=== PATIENT | male | born 1940 | race Caucasian/White ===

== ENCOUNTER 2024-02-23 08:09 | Inpatient (IN) | payer OTHER, SELFPAY ==
[2024-02-21 21:43] VITALS: BP 176/68
[2024-02-21 22:00] VITALS: BP 149/77
[2024-02-21 22:17] LABS: % Basophils 0.7 % (0-2); % Eosinophils 3.9 % (0-6); % Immature Granulocytes 0.3 % (0-0.5); % Lymphocytes 28.9 % (20.5-51.1); % Monocytes 15.1 % (1.7-9.3); % Neutrophils 51.1 % (42.2-75.2); Absolute Basophils 0.1 10^3/uL (0-0.2); Absolute Eosinophils 0.4 10^3/uL (0-0.7); Absolute Lymphocytes 2.9 10^3/uL (1.2-3.4); Absolute Monocytes 1.5 10^3/uL (0.1-0.6); Absolute Neutrophils 5.1 10^3/uL (1.4-6.5); Hematocrit 42.4 % (39.0-52.0); Hemoglobin 14.4 g/dL (13.0-18.0); Mean Corpuscular Hgb 30.5 pg (27.0-31.0); Mean Corpuscular Volume 89.8 fL (80.0-94.0); Mean Platelet Volume 9.5 fL (7.4-10.4); Nucleated Red Blood Cells % 0 % (-); Platelet Count 246 10^3/uL (130-400); Red Blood Cell Count 4.72 10^6/uL (4.70-6.10); Red Cell Dist. Width 14.6 % (11.5-14.5); White Blood Cell Count 10.1 10^3/uL (4.8-10.8)
[2024-02-21 22:22] VITALS: BMI 23.7
[2024-02-21 22:31] LABS: ALT (SGPT) 22 U/L (0-50); AST (SGOT) 24 U/L (17-59); Albumin 4.3 g/dl (3.5-5.0); Alkaline Phosphatase 93 U/L (38-126); Blood Urea Nitrogen 20 mg/dl (9-20); Calcium 9.9 mg/dl (8.4-10.2); Carbon Dioxide 25 mmol/L (22-30); Chloride 103 mmol/L (98-107); Estimated Creatinine Clearance 37 ml/min; Glucose 87 mg/dl (70-99); Potassium 4.6 mmol/L (3.5-5.1); Sodium 138 mmol/L (135-145); Total Bilirubin 0.7 mg/dl (0.2-1.3); Total Protein 6.8 g/dl (6.3-8.2); eGFR 42.22
[2024-02-21 22:33] LABS: Urine Albumin Trace (Neg - Trace); Urine Bilirubin 1+ (Negative); Urine Character Clear (Clear); Urine Color Yellow; Urine Glucose Negative (Negative); Urine Ketone Negative (Negative); Urine Leukocyte Negative (Negative); Urine Nitrite Negative (Negative); Urine Occult Blood Negative (Negative); Urine Urobilinogen Negative (Neg - 1+)
[2024-02-22] VITALS (8 sets, daily range): BP systolic 108–209; BP diastolic 57–96; BMI 23.1
--- NOTE | 2024-02-22 00:02 | ED.GENMED ---
History of Present Illness
General
Chief Complaint: Fall
Source: spouse and family (Son)
Exam Limitations: dementia
Time Seen by Provider: 02/21/24 23:44
History of Present Illness
History of Present Illness:
This is a 84 year old male that comes in with c/o fall. states that she was upstairs taking her shower. States that she heard a dish fall and went down stairs. States that what she thinks happens was that he went to the BR and when he came out
he started to fall and hit the plate on the counter and he was found on the floor. States that she was unable to get him up and he speak was garbled. States that she called her son and they got him up in a chair. States that he wanted to then go out
the back door. States that earlier in the evening when she saw him walking he walked feebly. Denies any fever, chills, chest pain, SOB, abd pain, nausea, vomiting, dairrhea, headache, dizziness, urinary burning.
Past History
Past History
ED Past Medical History: CVA, GERD, HTN, Hypercholesterolemia, Hypothyroidism and Other (Dementia, Glaucoma, Sleep apnea, )
ED Past Surgical History: Cardiac (Pacemaker) and Other (History of endoscopy, Cataracts, )
Social History
Tobacco: Non-smoker
Alcohol: None
Drug: None
Personal:
Living: with family
Family History
Family History: Other
Review of Systems
Review of Systems
All Other Systems: ROS reviewed and negative except as documented in HPI and ROS
Constitutional: Reports no symptoms; Denies fever or chills
EENT: Reports no symptoms
Respiratory: Denies cough or trouble breathing
Cardiac: Denies chest pain
ABD/GI: Reports no symptoms; Denies abdominal pain, nausea, vomiting or diarrhea
: Reports no symptoms; Denies dysuria, frequency or urgency
Musculoskeletal: Reports no symptoms
Skin: Reports no symptoms
Neurological: Reports no symptoms; Denies dizzy or headache
Psychiatric: Reports no symptoms
Phy Exam
General Physical Exam
General Presentation: no apparent distress
General age: appears stated age
General Skin: warm and dry
General Habitus: elderly
General Mental: usual mental status
General Hydration: appears well hydrated
ENT Exam
ENT Exam: TM's normal, pharynx normal and neck supple
Eye Exam
Eye Exam: EOMI
Cardiovascular Exam
Cardiovascular Exam: regular rate/rhythm, no edema and normal peripheral pulses
Pulmonary Exam
Pulmonary Exam: no respiratory distress, chest non tender, no rhonchi, no wheezing, no cough and other (Few crackles noted left base)
Gastrointestinal Exam
Gastrointestinal Exam: normal bowel sounds, non tender, soft, no organomegaly, no pulsatile mass and non distended
Musculoskeletal Exam
Musculoskeletal Exam: full ROM and no edema
Skin Exam
Skin Exam: normal color, warm/dry, no rash and no petechia
Psychiatric Exam
Psychiatric Exam: other (Dementia. gets agitated very easily)
Course
Orders/Labs/Results
Orders:
Orders
02/21/24 22:02
CMP [Comprehensive Metabolic Panel] Urgent
Complete Blood Count/With Diff Urgent
02/21/24 22:16
Urinalysis Reflex To Culture Urgent
Date Specimen was Collected: 02/21/24
Time Specimen was Collected: 22:15
Comment: straight cath
02/21/24 22:34
CT Head W/o Iv Contrast Urgent
Comment:
Reason For Exam: fall, confused, on plavix
Cervical Spine wo Contrast CT [CT Cervical Spine W/o Iv Contr] Urgent
Comment:
Reason For Exam: fall, confused, on plavix
02/22/24 00:08
CR Chest Single View Urgent
Reason For Exam: Crackles
02/22/24 00:11
Haloperidol Lactate [Haldol] 1 mg IV NOW STA
02/22/24 00:13
EKG [Electrocardiogram (*1)] Urgent
Reason for Study: QTc Monitoring
02/22/24 00:14
EKG- Treatment ONCE
02/22/24 01:36
Haloperidol Lactate [Haldol] 5 mg .ROUTE .STK-MED ONE
02/22/24 01:42
Quetiapine Fumarate [Seroquel] 25 mg PO NOW STA
02/22/24 01:43
Admit/Transfer Patient As Directed
Co-Sign Provider:
Level of Care: Observation services
Assign to:: Telemetry
Physician / Group: Jan
Diagnosis: Fall, Weakness
Reason for Telemetry: Arrhythmia
Date to Stop Telemetry: 02/25/24
Time to Stop Telemetry: 11:00
02/22/24 01:44
PRN Pain Medication Management As Directed
May give lesser potent ordered pain med per pt: Yes
preference::
Protocol:: Medication orders for pain may be administered in a
manner that supports deferring to patient preference
when the pt is:
- Requesting an ordered lesser potent pain medication.
Least to most potent pain medications are defined
as: acetaminophen < NSAID < tramadol < opioids
(morphine, oxycodone, hydromorphone).
- Requesting a lesser dose of the same medication IF
ORDERED.
- Requesting a less intrusive route of administration
if both routes are prescribed by the provider (PO <
IV).
02/22/24 01:45
Code Status As Directed
Resuscitation Status: Full Code
02/22/24 02:00
Flush (0.9% Sodium Chloride) [Flush (Nss)] See Dose Instructions IV PER PROTOCOL
02/22/24 02:54
Acetaminophen [Tylenol] 650 mg PO Q4HPRN PRN
Polyethylene Glycol Powder [Miralax] 17 grams PO DAILY PRN
Quetiapine Fumarate [Seroquel] 12.5 mg PO Q6HPRN PRN
02/22/24 02:54
Echo 2D MMode Doppler [Echo 2D MMode Color/Doppler] Routine
Reason for Study: CHF
Case Management Consult ONCE
Case Management Consult: Discharge Planning
TSH Reflex To Free T4 Routine
Activity As Directed
Activity Level: Ambulate
With Assistance
Bladder Scan As Directed
Follow Bladder Retention/Intermittent Cath Algorithm?: Yes
PRN if no void in __ hours: 6
Frequency: Per Retention Algorithm
If Bladder Scan Result >: 400
then:: Straight cath
EKG with chest pain [ECG as needed] As Directed
ECG as needed for:: Chest Pain
I/O [Intake/ Output] As Directed
Frequency: Per unit guidelines
Neurological Checks As Directed
Frequency: q4h
Orthostatic Vital Signs As Directed
Orthostatic VS Frequency: BID
Pneumatic Compression Sleeves As Directed
Type: Knee high
Straight Cath As Directed
Frequency: Per Retention Algorithm
Additional Instructions: straight cath as needed per acute urinary retention algorithm for 24 hrs
Additional Instructions: for bladder scan greater than 400 mL
Vital Signs As Directed
Frequency: Per unit guidelines
Weight As Directed
Frequency: Daily
Oxygen Therapy [O2 Therapy] [RESP] Routine
Titrate/Wean O2 to maintain O2 sat greater than (%): 94
Ot Eval And Treat Routine
PT Consult [Pt Eval And Treat] Routine
Activity Level: Ambulate
With Assistance
DX Deep Vein Thrombosis Video Routine
02/22/24 06:00
EKG [Electrocardiogram (*1)] IN AM
Reason for Study: Chest Pain
Regular
At Your Request: Limited, Spoilage Worker Required
Basic Metabolic Panel IN AM
Complete Blood Count/No Diff IN AM
Levothyroxine [Synthroid] 50 mcg PO DAILY @ 0600
02/22/24 08:00
Amlodipine [Norvasc] 5 mg PO DAILY
Brimonidine Tartrate/Timolol [Combigan Eye Drops] 1 drop BOTH EYES BID
Heparin 5,000 units SC Q12
Tamsulosin [Flomax] 0.4 mg PO BID
02/22/24 18:00
Pantoprazole [Protonix] 40 mg PO QPM
02/22/24 22:00
Clopidogrel Bisulfate [Plavix] 75 mg PO HS
Latanoprost [Xalatan Ophthalmic Solution] 1 drop BOTH EYES HS
Sennosides [Senokot] 17.2 mg PO HS
02/25/24 11:00
DC Protocol for Telemetry ONCE
Abnormal Lab Results
02/21/24 02/21/24
22:02 22:16
RDW 14.6 H %
(11.5-14.5)
Absolute Monos (auto) 1.5 H 10^3/uL
(0.1-0.6)
Monocytes % 15.1 H %
(1.7-9.3)
Creatinine 1.6 H mg/dL
(0.7-1.3)
Urine Bilirubin 1+ A
(Negative)
02/21/24 22:02
02/21/24 22:02
Cr slightly elevated. Urine negative for infection.
Vital Signs
Initial and Last Documented VS:
Initial Vital Signs
Pulse Resp BP Pulse Ox
70 18 176/68 97
02/21/24 21:43 02/21/24 21:43 02/21/24 21:43 02/21/24 21:43
Last Documented Vital Signs
Temp Pulse Resp BP Pulse Ox
98 F 62 20 160/81 96
02/22/24 02:47 02/22/24 02:47 02/22/24 02:47 02/22/24 02:47 02/22/24 02:47
MDM/Problems Addressed
Differential Diagnosis Includes:
Dementia, accidental fall
MDM/Problems Addressed:
This is a 84 year old male that comes in with c/o fall. states that she was unable to get him up and he had garbled speech at first. States that now he is back to his base line. States that she is unable to care for patient. States that he
keeps getting up and she is afraid that he will fall again.
Will check labs, CT head and cervical spine. Patient is on Plavix. Did get patient up to walk and patient was unsteady and needed assist of two. Will admit patient for [facility].
Chronic conditions affecting care:
Dementia
Acute Exacerbation and/or Progression of Chronic Illness:
Dementia
*Radiology
Radiology exam reviewed: preliminary read by ED provider (Chest-Increased vascular congestion. ) and radiology read reviewed (CT head-No acute intracranial abnormality noted. Moderate atrophy with sequelae of mild small vessel ischemic disease.
Cervical spine CT-No acute osseous abnormality. Multilevel degenerative changes. )
*Pulse Oximetry
Patient hypoxic: no
*EKG
Interpreted by ED Provider?: Yes
Heart Rate: 62
Rate: normal
Rhythm: av sequential
[place]: left axis deviation
*Car Pusher Interpretation
Rate: normal
Heart Rate: 92
Rhythm: av sequential
*Critical Care Note
Total Time (30-74mins, 75-104mins- exclusive of procedures): Not Applicable
ED Attending Note
-
Portions of this chart may have been created with voice recognition software.� Occasional wrong word or��sound alike� substitutions may have occurred due to the inherent limitations of voice recognition software.
Discharge Plan
Departure
Patient Disposition: Admit
Date of Disposition: 02/22/24
Time of Disposition: 00:15
Admit to: Med/Surg
Presentation/result/management discussed w/ accepting MD/DO: Hospitalist
Patient with high blood pressure during this ER visit?: Yes
Condition: Good
Covid-19: Not Applicable
Discharge Problem:
Accidental fall, Hospital admission due to social situation, Dementia
Interventions
Interventions:
*Risk Screen - Suicide Last Done: 02/21/24 22:23
*General Assessment Last Done: 02/21/24 22:23
*Neglect/Abuse Screening Last Done: 02/21/24 22:23
*ED COVID-19 Vaccine History Last Done: 02/21/24 22:23
*Nursing Disposition Last Done: 02/22/24 02:27
ED-Musculoskeletal Assessment Last Done: 02/21/24 22:35
ED- Neurological Assessment Last Done: 02/21/24 22:35
ED-Skin Assessment Last Done: 02/21/24 22:35
Discharge Date and Time
Discharge Date/Time: 02/22/24 02:27
[2024-02-22] MEDS: HALDOL 1 MG IV (00:31)
[2024-02-22] MEDS: SEROQUEL 25 MG PO (01:46)
--- NOTE | 2024-02-22 01:49 | HPS.HSE ---
Family Physician
-
Family Physician: INTERVIEWE UNKNOWN - PT NOT
Chief Complaint
-
Fall at Home, Confusion
History of Present Illness
Patient is an 84y M with PMH significant for hypertension, senile dementia and SSS s/p PPM who presents to ED for evaluation after fall at home. History obtained from ED staff as patient cannot contribute due to dementia and family is not
available for review. Patient with long history of senile dementia and recent worsening of symptoms. This evening, he fell at home and found him on the carpeted floor. He seemed more confused initially and 911 was called. Patient was
brought to the ED for evaluation where he returned to his usual baseline.
Family notes that patient is up multiple times throughout the night with urge to urinate. He has frequent falls at home as a result.
They feel they are no longer able to safely care for him in the home.
Medical History
Past Medical History
Past Medical History: Reports Other
Additional Past Medical History:
SSS s/p PPM
ASCVD / CVA
Senile Dementia with Behavioral Disturbance
Hypertension
Hypothyroidism
BPH
GERD
Glaucoma
CKD III
Past Surgical History: Reports Other
Additional Past Surgical History:
PPM Placement
Knee Surgery
Social History
Unable to obtain full social history at this time due to: Dementia
Family History
Family History: Unable to Obtain
Allergies / Home Medications
Allergies reflects when Allergies were last updated in [employer].
Home Medications with original date entered in [employer]
Allergy/Medication List:
Allergies
Allergy/AdvReac Type Severity Reaction Status Date / Time
aspirin Allergy GI Verified 02/21/24 22:23
bleeding
30 yrs ago
lorazepam [From Ativan] Allergy becomes Verified 02/21/24 22:23
combative
Home Medications
bimatoprost 0.01 % eye drops (Lumigan) 1 drp BOTH EYES HS 01/22/19
brimonidine 0.2 %-timolol 0.5 % eye drops (Combigan) 1 drp BOTH EYES BID 01/22/19
calcium 500 mg (as carbonate)-vitamin D3 5 mcg (200 unit) tablet (Oyster Shell Calcium-Vitamin D3) 1 tab PO DAILY 01/22/19
cholecalciferol (vitamin D3) 50 mcg (2,000 unit) tablet 5,000 units PO DAILY 01/22/19
coenzyme Q10 200 mg capsule (Co Q-10) 200 mg PO DAILY 01/22/19
cyanocobalamin (vitamin B-12) 1,000 mcg tablet 3,000 mcg PO DAILY 01/22/19
glucosamine [id number]-R9-Zyxfhnaqu venita 1,500 mg-400 unit-100 mg tablet (Osteo Bi-Flex (5-Loxin)) 1 ea PO DAILY 01/22/19
levothyroxine 50 mcg tablet 50 mcg PO DAILY 01/22/19
pantoprazole 40 mg tablet,delayed release 40 mg PO QPM 01/22/19
tamsulosin 0.4 mg capsule 0.4 mg PO BID 01/22/19
amlodipine 5 mg tablet 5 mg PO DAILY #30 tabs 01/25/19
clopidogrel 75 mg tablet 75 mg PO HS ##0 01/25/19
Review of Systems
-
Unable to obtain full review of systems at this time due to: Dementia
History Source: Patient (Limited ROS due to baseline dementia.)
Respiratory: Denies Trouble Breathing
Cardiac: Denies Chest Pain
Abdomen/GI: Denies Abdominal Pain
Neurological: Denies Headache
Physical Exam
Vital Signs
Vital Signs
Temp Pulse Resp BP Pulse Ox
98.0 F 60 20 188/70 94
02/21/24 21:51 02/22/24 00:45 02/22/24 00:45 02/22/24 00:05 02/22/24 00:45
Physical Exam
General: Other (84y M in no acute distress.)
HEENT: Moist mucous membranes, PERRLA and Other (No JVD.)
Respiratory: Other (Scattered rales bilaterally. No wheeze / rhonchi.)
Cardiac: S1/S2 and Regular Rhythm; No Murmur
GI: Soft, Non Tender, Non Distended and Normal Bowel Sounds
Musculoskeletal: No Clubbing, No Cyanosis and No Edema
Neuro: Awake, Alert and Other (Not oriented to place or time. Restless / slightly agitated.); No Oriented
Laboratory Results
-
02/21/24 22:02
02/21/24 22:02
Laboratory Results
Total Bilirubin 0.7 mg/dl (0.2-1.3) 02/21/24 22:02
AST 24 U/L (17-59) 02/21/24 22:02
ALT 22 U/L (0-50) 02/21/24 22:02
Alkaline Phosphatase 93 U/L (38-126) 02/21/24 22:02
Impression/Plan
-
A/P: Patient is an 84y M with PMH significant fro senile dementia, prior CVA, HTN and CKD who presents to ED for evaluation after fall at home.
Fall at Home
Senile Dementia with Behavioral Disturbance
- Observe overnight for further evaluation and treatment.
- Family no longer able to care for patient at home safely.
- CT head unremarkable and patient back to baseline status per family.
- UA not indicative of infection.
- PT / OT evaluations.
- CM eval for discharge planning / placement.
- Seroquel PRN agitation - adjust med regimen as needed for control of agitation / behaviors.
Abnormal CXR
- CXR and exam suggestive of degree of pulmonary edema.
- Given current issues with frequent urge to urinate / preoccupation with urination - will hold on any trial of diuretic, etc for now.
- Check Echo.
- Follow for any dyspnea, hypoxemia, etc.
MESFIN versus progression of CKD
- SCr = 1.6 compared to prior baseline 1.2 (> 1 year ago).
- Follow for changes over the next 24-48 hours to establish new baseline.
ASCVD
Prior CVA
- Stable. No new focal neurologic deficits at present.
- CT head negative as noted above.
- Continue current medications including Plavix.
Benign Hypertension
- Stable. Continue current meds with holding parameters.
Hypothyroidism
- Continue current T4 supplementation.
- Update TFTs.
BPH
- Stable. Continue tamsulosin.
- Straight cath in the ED for only 125 - no evidence of retention.
- Follow bladder scan protocol.
DVT Prophylaxis: SCDs
Code Status: Full
--- NOTE | 2024-02-22 02:45 | PTCARENOTE ---
Pt transferred from ED, pulled over to bed. Pt AAOX1, agitated, grabbing and kicking at nursing staff. Celeste ORELLANA at bedside, restraints ordered and applied. IM Zyprexa given. Bed alarm applied, pt oriented to room and call garcia. Will
continue with current plan.
--- NOTE | 2024-02-22 02:48 | W.PN.UPDATE ---
Update Note
Progress Note Update
Per nursing staff. patient is agitated, swinging at the staff, trying to kick the nursing staff. One time Zyprexa 5mg IM given and soft restraint was placed.
[2024-02-22] MEDS: ZYPREXA 5 MG IM (03:12)
[2024-02-22] MEDS: SYNTHROID PO (05:55)
[2024-02-22 07:03] LABS: Hematocrit 41.5 % (39.0-52.0); Hemoglobin 14.1 g/dL (13.0-18.0); Mean Corpuscular Hgb 30.9 pg (27.0-31.0); Mean Platelet Volume 9.6 fL (7.4-10.4); Platelet Count 231 10^3/uL (130-400); Red Blood Cell Count 4.56 10^6/uL (4.70-6.10); Red Cell Dist. Width 14.8 % (11.5-14.5); White Blood Cell Count 11.6 10^3/uL (4.8-10.8)
[2024-02-22 07:33] LABS: Blood Urea Nitrogen 18 mg/dl (9-20); Calcium 9.9 mg/dl (8.4-10.2); Carbon Dioxide 29 mmol/L (22-30); Chloride 105 mmol/L (98-107); Estimated Creatinine Clearance 42 ml/min; Glucose 98 mg/dl (70-99); Potassium 4.6 mmol/L (3.5-5.1); Sodium 143 mmol/L (135-145); eGFR 49.56
[2024-02-22] MEDS: HEPARIN 5000 UNITS SC ×2 (07:50→20:24)
[2024-02-22] MEDS: NORVASC 5 MG PO (07:50)
[2024-02-22] MEDS: COMBIGAN EYE DROPS 1 DROP BOTH EYES ×2 (07:50→20:33)
[2024-02-22] MEDS: FLOMAX 0.4 MG PO ×2 (07:50→20:24)
--- NOTE | 2024-02-22 08:32 | W.PN.HOSP.TC ---
Today's Communication/Plan
-
Neurology to evaluate given patient's reported postictal symptoms THEATRICAL RIGGER
Cardiology to interrogate patient's device
Echo results pending
Continue telemetry monitoring
Assessment / Plan
Assessment / Plan
Physical Exam
General: Other (84y M in no acute distress.)
HEENT: Moist mucous membranes, PERRL
Respiratory: CTAB
Cardiac: S1/S2 and Regular Rhythm
GI: Soft, Non Tender, Non Distended and Normal Bowel Sounds
Musculoskeletal: No Cyanosis and No Edema
Neuro: Awake, Alert and Other (Not oriented to place or time. Restless / slightly agitated.); Follows some commands on cranial nerves and strength and sensation exam -- B/L upper extremity strength appear 5/5 and cranial nerves grossly intact
Assessment/Plan
Patient is an 84y M with PMH significant fro senile dementia, prior CVA, HTN and CKD who presents to ED for evaluation after fall at home.
84y M brought in by family who can no longer care for him at home. Dementia / agitation / frequent falls. CM eval. PRN Seroquel for now. ? Psych eval if needed.
Fall at Home
Possible Seizure with postictal state observed by patient's -- mentioned on 02/22/24
Senile Dementia with Behavioral Disturbance
Toxic metabolic encephalopathy
- Family no longer able to care for patient at home safely.
- CT head unremarkable and patient back to baseline status per family.
- UA not indicative of infection.
- PT / OT evaluations.
- CM eval for discharge planning / placement.
- Seroquel PRN agitation - adjust med regimen as needed for control of agitation / behaviors.
- Follow-up echo results
- Discussed on 02/22/[address] Nielsen of cardiology given abnormal rhythm on tele: Dr. Nielsen looked at the tele monitor and mentioned rhythm looks like artifact.
- Cardiology will interrogate patient's device, full consult not needed at this time
- Speech
- Neurology consult
Abnormal CXR
- CXR suggestive of degree of pulmonary edema. No SOB or chest pain. ProBNP 270.
- Given current issues with frequent urge to urinate / preoccupation with urination - will hold on any trial of diuretic, etc for now.
- Check Echo.
- Follow for any dyspnea, hypoxemia, etc.
MESFIN versus progression of CKD
- SCr = 1.6 compared to prior baseline 1.2 (> 1 year ago)-->1.4
ASCVD
Prior CVA
- Stable. No new focal neurologic deficits at present.
- CT head negative as noted above.
- Continue current medications including Plavix.
Benign Hypertension
- Stable. Continue current meds with holding parameters.
Hypothyroidism
- Continue current T4 supplementation.
- Update TFTs.
BPH
- Stable. Continue tamsulosin.
- Straight cath in the ED for only 125 - no evidence of retention.
- Follow bladder scan protocol.
DVT Prophylaxis: SCDs. Switch to Lovenox for DVT Prophylaxis after second Heparin Dose tonight (assuming renal function is stable or better)
Code Status: Full
I spoke with patient's on 02/22/24, all questions and concerns were answered to satisfaction.
Total time spent today on chart review, seeing and examining patient, speaking with patient's , talking with cardiology and neurology, and documentation, was 55 minutes.
Anticipated Discharge: 24 - 48 hours
Subjective/Interval History
-
Date of Service: February 22, 2024
Patient was seen and examined. He appeared to be confused, mumbling some words but awake and following many commands.
Objective Data
-
Labs:
Laboratory Results
02/21/24 02/22/24
22:02 06:29
WBC 10.1 11.6 H
Hgb 14.4 14.1
Hct 42.4 41.5
Plt Count 246 231
Sodium 138 143
Potassium 4.6 4.6
Chloride 103 105
Carbon Dioxide 25 29
BUN 20 18
Creatinine 1.6 H 1.4 H
Glucose 87 98
Calcium 9.9 9.9
Total Bilirubin 0.7
AST 24
ALT 22
Alkaline Phosphatase 93
Vital Signs:
Vital Signs
Temp Pulse Resp BP Pulse Ox
97.9 F 62 17 209/96 96
02/22/24 08:11 02/22/24 08:11 02/22/24 08:11 02/22/24 08:11 02/22/24 08:11
[2024-02-22 11:39] LABS: NT-proBNP 270 pg/ml; Troponin I 0.013 ng/ml
[2024-02-22 14:04] LABS: Troponin I < 0.012 ng/ml
--- NOTE | 2024-02-22 14:08 | CON.NEURO4 ---
Addendum entered and electronically signed by Hadley Melvin MD 02/23/24 11:55:
Signing this chart for the original attending physician.
Original Note:
Consultation - Neurology 4
-
CONSULTING PHYSICIAN: Clari Rice DO
REFERRING PHYSICIAN: Hospitalists/Dr. Schulz
DICTATED BY: REYNA Benton
DATE/TIME OF REQUEST: 02/22/24
DATE/TIME OF CONSULTATION: 02/22/24
Reason for Consultation: Fall, altered mental status
History of Present Illness:
This is an 84-year-old right-handed male who has presented to the hospital with report of a fall, garbled speech, and confusion. Patient has been evaluated by our Neurology service in the past starting in 2013 at which time he presented with a R
MCA stroke syndrome and received IV tPA. MRI brain demonstrated a small R MCA territory ischemic stroke at that time, he was discharged on aspirin and returned to the hospital that following day with additional stroke symptoms and was found to have
an additional R lentiform nucleus ischemic infarct. His reports that he started having short term memory issues at that time, but otherwise had no residual deficits. He has been taking Plavix 75mg daily since then. He has also been evaluated by
Neurology Dr. Mendoza in the past for intermittent 'spells' mostly at night or in the magnetic doctor consisting of heavy breathing lasting 20-60 seconds. He underwent several EEG studies which were unremarkable, he was felt to have sleep apnea. His
reports that this has not occurred in years and he has never had a witnessed epileptic seizure.
2-3 years ago his son and note that he started having superintendent terminal memory issues and it is not too uncommon for him to forget who his family members are. He stopped driving 10 years ago due to memory issues. He has not managed the finances since
early in their marriage. He is still able to dress/bath/feed himself but over the past year he has needed frequent reminders to complete self-care activities. He ambulates without an assistive device and does not typically fall. He has never been on
any memory medications or undergone neuropsychological testing. His notes that he has been urinating constantly throughout the night in the past week, and then sleeping late into the day, this is unusual for him. Otherwise, she denies any
recent illness or medication changes.
Yesterday (02/22/24), his notes that they had dinner and then she went upstairs to shower around 2000. She heard a plate drop and then a thud and went downstairs to find the patient on the ground. She notes that it seems he had recently used
the bathroom as the toilet paper was disorganized. She found him on the floor awake and alert but more confused than usual with garbled speech. He had no body shaking, tongue biting, incontinence, body shaking, or gaze deviation. He was unable to
get up off of the ground until their son arrived 15 minutes later and assisted him. He seemed very confused and his speech was still garbled, prompting them to call 911. On arrival in the ER, CT head was obtained and is negative for any acute
abnormalities. They report that he seemed back to his baseline and they headed home around 0100. Overnight, he was agitated/combative and received Haldol 1mg, Seroquel 25mg, and Zyprexa 5mg IM. Today, he has been lethargic/sleeping all day. He will
open his eyes to loud voice/touch but is agitated with examination. He will not answer ROS questions.
Medical History: Dementia, R MCA ischemic stroke s/p tPA 2013, R lentiform nucleus ischemic infarct, HTN, HLD, hypothyroidism, asthma, SSS, Santos's esophagus, GI bleed on ASA, migraines, BPH, NOAH, glaucoma, osteopenia, NOAH
Surgical History: Arthroscopic knee surgery, knee replacement, pacemaker, EGD with biopsy, cataract removal
Family History: Reviewed and noncontributory.
Social History: Former alcohol. No tobacco or illicit drug use.
Allergies: Aspirin, lorazepam.
Home Medications: See below.
Review of Symptoms:
Per the HPI. I am unable to obtain a complete review of systems�because of patient's inability to provide history.
Physical Exam:
The patient is afebrile, abdomen is nondistended, breathing is unlabored, skin is warm and dry, no edema. There is no tongue laceration.
Neurologic Examination:
The patient is lethargic. Opens eyes to loud voice/pain. Oriented to name only. He is able to follow some commands and answer some questions appropriately. Very uncooperative/agitated with examination. There is no aphasia or dysarthria. On cranial
nerve assessment, pupils are 3 mm bilateral, round and reactive to light and accommodation. DAMARIS visual tipton/EOMs due to cooperation, no gaze deviation. There is no facial asymmetry. Hearing is diminished bilaterally to normal conversation volume.
Tongue palate and uvula are midline, no tongue laceration is noted. Sternocleidomastoid strengths are full bilaterally. Motor strengths are 5/5 bilateral upper and lower extremities on medical research [place] scale. There is no drift or involuntary
movement noted. Deep tendon reflexes are 1+ bilateral upper and lower extremities and Babinski is absent bilaterally. DAMARIS sensation, double simultaneous, coordination.
Lab Results: See below.
Neuro Imaging:
1. CT Head 02/21/24: No acute intracranial abnormality noted. Moderate atrophy with sequelae of mild small vessel ischemic disease.
2. CT Cervical spine 02/21/24: No acute osseous abnormality. Multilevel degenerative changes.
Differentials for the patient's presentation include:
1. Fall with residual increased confusion and garbled speech, unclear cause. Likely either mechanical or orthostatic hypotension/syncope. Cannot exclude partial seizure or vascular source but no tongue bite, no confirmed loss of consciousness, no
incontinence, and no focal neurological deficit to support this.
2. Hypertensive urgency.
3. Dementia, agitation likely induced by hospital setting. Family notes he has become agitated in the hospital several times before, he is only his usual pleasant self when he is at home.
4. History of multiple strokes.
5. CT head negative for hemorrhage.
Recommendations:
-Continue Plavix 75mg daily.
-Avoid benzodiazepines. Seroquel PRN agitation. Attempt to promote appropriate day/night cycles by limiting daytime napping, encouraging adequate daytime light exposure, and limiting night time awakenings. May need psychiatry input for agitation
recommendations.
-Goal normotension.
-Infectious/metabolic workup per primary team.
-Would check orthostatic vital signs if he tolerates this.
-MRI brain will be challenging to obtain without sedation. This is unlikely to change the plan of care and will likely contribute to delirium.
-Do not see a role for EEG currently as patient seems back to his baseline except for lethargy induced by polypharmacy.
-LDL goal <70. Lipid panel pending.
-Goal normoglycemia.
-Neurological checks per unit guidelines.
-DVT prophylaxis.
Discussed patient care with: Dr. Rice, patient's family
Vital Signs and Labs
-
Vital Signs and Labs:
Vital Signs
Temp Pulse Resp BP Pulse Ox
97.9 F 63 14 157/89 96
02/22/24 08:11 02/22/24 12:00 02/22/24 12:00 02/22/24 12:00 02/22/24 12:00
Lab Results
02/22/24 06:29
02/22/24 06:29
Sodium 143 mmol/L (135-145) 02/22/24 06:29
Potassium 4.6 mmol/L (3.5-5.1) 02/22/24 06:29
BUN 18 mg/dl (9-20) 02/22/24 06:29
Glucose 98 mg/dl (70-99) 02/22/24 06:29
Calcium 9.9 mg/dl (8.4-10.2) 02/22/24 06:29
Obe-B-Frwzmoeoahm Pept 270 pg/ml 02/22/24 11:03
Medications
-
Active Medications
Generic Name Dose Route Start Last Admin
Trade Name Freq PRN Reason Stop Dose Admin
Acetaminophen 650 mg 02/22/24 02:54
Acetaminophen 325 Mg Tablet PO 03/21/24 02:53
Q4HPRN PRN
Mild Pain / Temp > 101
Amlodipine Besylate 5 mg 02/22/24 08:00 02/22/24 07:50
Amlodipine 5 Mg Tablet PO 03/21/24 07:59 5 mg
DAILY LORE Administration
Brimonidine/Timolol 1 drop 02/22/24 08:00 02/22/24 07:50
Brimonidine Tartrate/Timolol (Combigan) 5 Ml Bottle BOTH EYES 03/21/24 07:59 1 drop
BID LORE Administration
Clopidogrel Bisulfate 75 mg 02/22/24 22:00
Clopidogrel 75 Mg Tablet PO 03/21/24 21:59
HS LORE
Heparin Sodium 5,000 units 02/22/24 08:00 02/22/24 07:50
Heparin 5,000 Units/Ml 1 Ml Vial SC 03/21/24 07:59 5,000 units
Q12 LORE Administration
Latanoprost 1 drop 02/22/24 22:00
Latanoprost 0.005% (Ophthalmic Solution) 2.5 Ml Bottle BOTH EYES 03/21/24 21:59
HS LORE
Levothyroxine Sodium 50 mcg 02/22/24 06:00 02/22/24 05:55
Levothyroxine 50 Mcg Tablet PO 03/21/24 05:59 Not Given
DAILY @ 0600 LORE
Pantoprazole Sodium 40 mg 02/22/24 18:00
Pantoprazole 40 Mg Delayed Release Tablet PO 03/21/24 17:59
QPM LORE
Polyethylene Glycol 17 grams 02/22/24 02:54
Polyethylene Glycol Powder 17 Grams Packet PO 03/21/24 02:53
DAILY PRN
Constipation
Quetiapine Fumarate 12.5 mg 02/22/24 02:54
Quetiapine 25 Mg Tablet PO 03/21/24 02:53
Q6HPRN PRN
Agitation
Sennosides 17.2 mg 02/22/24 22:00
Sennosides (Senokot) 8.6 Mg Tablet PO 03/21/24 21:59
HS LORE
Sodium Chloride 0 flush 02/22/24 02:00
Sodium Chloride 0.9% (Flush) Syringe IV 03/21/24 01:59
PER PROTOCOL LORE
Tamsulosin HCl 0.4 mg 02/22/24 08:00 02/22/24 07:50
Tamsulosin 0.4 Mg Capsule PO 03/21/24 07:59 0.4 mg
BID LORE Administration
Home Medications
�Medication �Instructions �Recorded
bimatoprost 0.01 % eye drops 1 drp BOTH EYES HS Eye Condition 01/22/19
(Lumigan)
brimonidine 0.2 %-timolol 0.5 % 1 drp BOTH EYES BID Eye Condition 01/22/19
eye drops (Combigan)
calcium 500 mg (as 1 tab PO DAILY Supplement 01/22/19
carbonate)-vitamin D3 5 mcg (200
unit) tablet (Oyster Shell
Calcium-Vitamin D3)
cholecalciferol (vitamin D3) 50 5,000 units PO DAILY Supplement 01/22/19
mcg (2,000 unit) tablet
coenzyme Q10 200 mg capsule (Co 200 mg PO DAILY Supplement 01/22/19
Q-10)
cyanocobalamin (vitamin B-12) 3,000 mcg PO DAILY Supplement 01/22/19
1,000 mcg tablet
glucosamine LOv-I9-Eesbevgdk 1 ea PO DAILY Supplement 01/22/19
venita 1,500 mg-400 unit-100 mg
tablet (Osteo Bi-Flex (5-Loxin))
levothyroxine 50 mcg tablet 50 mcg PO DAILY Thyroid 01/22/19
pantoprazole 40 mg tablet,delayed 40 mg PO QPM Gastrointestinal Issue 01/22/19
release
tamsulosin 0.4 mg capsule 0.4 mg PO BID BPH 01/22/19
amlodipine 5 mg tablet 5 mg PO DAILY #30 tabs 01/25/19
clopidogrel 75 mg tablet 75 mg PO HS ##0 01/25/19
--- NOTE | 2024-02-22 14:30 | W.CARD.DEVCH ---
Cardiac Device Check
-
Device: Pacemaker
Paster Operator: [employer]
The patient's device was interrogated with assistance of the device account retention representative followed by a complete physician review. The device had normal function. No abnormalities seen.
Device interrogation performed in patient's room by me. Battery longevity greater than 5 years. Single episode of 4 beat NSVT back on 01/03/2024 without recurrent episodes. No evidence of atrial fibrillation on device check. Normal lead thresholds.
--- NOTE | 2024-02-22 16:28 | CM ---
solar manager reviewed patient's chart and met with patient and patient's spouse at bedside, patient was admitted under OBS, ALVAREZ letter given to patient. Patient lives with spouse in a 2 story home, 1 step to enter, patient is independent with adl's
and ambulation, no dme.
PCP: Dr Aguilar
Pharmacy: [facility] in [place]
Plan; Await PT/OT for recommendations for patient.
[2024-02-22] MEDS: PROTONIX 40 MG PO (16:46)
[2024-02-22 17:08] LABS: HDL Cholesterol 52 mg/dl; LDL Cholesterol, Calculated 42 mg/dl; Total Cholesterol 121 mg/dl (50-199); Triglyceride 138 mg/dl (10-149); Very Low Density Lipoprotein 27 mg/dl (0-30)
[2024-02-22] MEDS: SEROQUEL 12.5 MG PO (20:34)
[2024-02-22] MEDS: XALATAN OPHTHALMIC SOLUTION 1 DROP BOTH EYES (21:33)
[2024-02-22] MEDS: SENOKOT 17.2 MG PO (21:33)
[2024-02-22] MEDS: PLAVIX 75 MG PO (21:33)
[2024-02-22 21:58] LABS: Troponin I < 0.012 ng/ml
[2024-02-23] VITALS (7 sets, daily range): BP systolic 76–168; BP diastolic 48–89; PULSE 61–73; BMI 23.3
[2024-02-23] MEDS: SYNTHROID 50 MCG PO (05:24)
[2024-02-23] MEDS: NORVASC 10 MG PO (08:18)
[2024-02-23] MEDS: HEPARIN 5000 UNITS SC ×2 (08:18→21:46)
[2024-02-23] MEDS: FLOMAX 0.4 MG PO ×2 (08:18→21:45)
[2024-02-23] MEDS: COMBIGAN EYE DROPS 1 DROP BOTH EYES ×2 (08:19→21:45)
--- NOTE | 2024-02-23 11:55 | W.PN.NEURO.1 ---
Today's Communication / Plan
-
Would avoid further attempts at obtaining MRI of brain at this time as the need to sedate the patient in addition to make preparations prior to the use of MRI in a patient with a pacemaker may lead to continued oversedation and potential injury
Neuro Assessment/Plan
Assessment
This is an 84-year-old right-handed male who has presented to the hospital with report of a fall, garbled speech, and confusion.
Neuro Imaging:
1. CT Head 02/21/24: No acute intracranial abnormality noted. Moderate atrophy with sequelae of mild small vessel ischemic disease.
2. CT Cervical spine 02/21/24: No acute osseous abnormality. Multilevel degenerative changes.
Differentials for the patient's presentation include:
1. Fall with residual increased confusion and garbled speech, unclear cause. Likely either mechanical or orthostatic hypotension/syncope. Cannot exclude partial seizure or vascular source but no tongue bite, no confirmed loss of consciousness, no
incontinence, and no focal neurological deficit to support this.
2. Hypertensive urgency.
3. Dementia, agitation likely induced by hospital setting. Family has noted he has become agitated in the hospital several times before, he is only his usual pleasant self when he is at home.
4. History of multiple strokes.
Plan
Would avoid further attempts at obtaining MRI of brain at this time as the need to sedate the patient in addition to make preparations prior to the use of MRI in a patient with a pacemaker may lead to continued oversedation and potential injury
Continue clopidogrel
We will follow as needed.
Subjective/Objective
Subjective Data
Date of Service: February 23, 2024
Patient unable to provide his own medical history
Objective Data
Vital Signs
Temp Pulse Resp BP Pulse Ox
36.6 C 75 18 168/89 98
02/23/24 07:00 02/23/24 08:18 02/23/24 07:00 02/23/24 08:18 02/23/24 08:20
Lab Results
02/22/24 06:29
02/22/24 06:
Sodium 143 mmol/L (135-145) 02/22/24 06:
Potassium 4.6 mmol/L (3.5-5.1) 02/22/24 06:29
BUN 18 mg/dl (9-20) 02/22/24 06:
Glucose 98 mg/dl (70-99) 02/22/24 06:
Calcium 9.9 mg/dl (8.4-10.2) 02/22/24 06:
Kso-T-Dumnofwpohh Pept 270 pg/ml 02/22/24 11:03
LDL Cholesterol, Calc 42 mg/dl 02/22/24 06:29
Patient Allergies
aspirin Allergy (Verified 02/21/24 22:23)
GI bleeding 30 yrs ago
lorazepam [From Ativan] Allergy (Verified 02/21/24 22:23)
becomes combative
Review of Systems
-
Unable to obtain full review of systems at this time due to: Dementia
History Source: Patient
All other systems: Reviewed and negative
Physical Exam
-
General: No Apparent Distress, Appears Stated Age and Restrained
Eyes: Round OU, [place] Conjunctivae and No Ptosis
HEENT: Anicteric and Moist Mucous Membranes
Neck: Full Range of Motion
Respiratory: No Dyspnea
Cardiac: No JVD
GI: Non-distended
Skin: Unremarkable
Extremities: No Clubbing, No Cyanosis and No Edema
Psych: Unable to Assess
Extended Neurological Exam
Mood & Affect: Unable to Assess
Attention Span & Concentration: Lethargic and Unresponsive to Verbal Stimuli; Negative Unresponsive to Physical Stimuli
Memory: Unable to Assess
Tremor: Hand Tremor Absent and Head Tremor Absent
Speech: Quality Unremarkable and Quantity Unremarkable
Cranial Nerve II: Left Eye: Pupillary Size Unremarkable and Unable to Assess
Cranial Nerve II: Right Eye: Pupillary Size Unremarkable and Unable to Assess
Cranial Nerves III, IV, : Extraocular Movement: Unable to Assess
Cranial Nerve VII: Facial Symmetry: Reduced (Resistance to passive eye opening on the right compared with the left)
Cranial Nerve VIII: Hearing: Unremarkable Hearing to Normal Conversational Volume
Cranial Nerves IX, X: Palate Movement: Unable to Assess
Cranial Nerve XI: Shoulder Shrug: Unable to Assess
Cranial Nerve XII: Tongue Protusion: Unable to Assess
Muscle Strength, Overall: Unable to Assess (Due to lethargy)
Muscle Bulk & Tone: Tone Unremarkable
Pronator Drift: Unable to Assess
Cold Sensation: Unable to Assess
Vibration Sensation: Unable to Assess
Touch Sensation: Unremarkable
Coordination: Unable to Assess
Gait & Station: Unable to Assess
[2024-02-23 12:28] LABS: Glycohemoglobin (HgbA1c) 5.8 % (4.0-5.6)
--- NOTE | 2024-02-23 14:02 | CM ---
Chart reviewed and patient has switched to inpatient IMM provided to patient and spouse. Waiting on recommendation from physical therapy, per spouse patient was independent prior to admission, per son Fadi Terrell 3rd, , he is
secondary contact for patient.
Plan; Wait on PT/OT evaluations and recommendations.
--- NOTE | 2024-02-23 15:27 | W.PN.HOSP.TC ---
Today's Communication/Plan
-
Placement pending
PT/OT
Check labs, CXR for any pneumonia
No indication for repeat CT head or an MRI as per neurology
Assessment / Plan
Assessment / Plan
Echocardiogram (as per construction crew member's report)
'CONCLUSIONS
1. Technically difficult and limited quality study. Patient was reported to
be very combative during the study.
2. Left ventricle: Grossly normal systolic function estimated above 50% by
visual estimation
3. Right ventricle: Normal
4. Atria: Not well-visualized
5. Mitral valve: No significant mitral regurgitation noted during this limited
study
6. Aortic valve: No aortic insufficiency
7. Tricuspid valve: Mild tricuspid regurgitation. Estimated pulmonary artery
systolic pressures were 20-25 mmHg
8. When compared to the most recent echocardiogram from 01/18/2019 there have
been no significant changes. The present study was technically difficult due
to patient agitation and combativeness'

Physical Exam
General: Not in acute distress
HEENT: Moist mucous membranes
Respiratory: CTAB
Cardiac: S1/S2 and Regular Rhythm
GI: Soft, Non Tender, Non Distended and Normal Bowel Sounds
Musculoskeletal: No Cyanosis and No Edema
Neuro: Awake, Alert and Other (Not oriented to place or time. Restless / slightly agitated.); Does not follow most commands due to lethargy.
Assessment/Plan
Patient is an 84y M with PMH significant fro senile dementia, prior CVA, HTN and CKD who presents to ED for evaluation after fall at home.
84y M brought in by family who can no longer care for him at home. Dementia / agitation / frequent falls. CM eval. PRN Seroquel for now. ? Psych eval if needed.
Fall at Home
Possible Seizure with postictal state observed by patient's -- mentioned on 02/22/24
Senile Dementia with Behavioral Disturbance
Toxic metabolic encephalopathy
- Family no longer able to care for patient at home safely.
- CT head unremarkable and patient back to baseline status per family.
- UA not indicative of infection.
- Checking for labwork for possible causes of encephalopathy
- Per neurology, no further neuroimaging for encephalopathy needed and MRI is not advised in this patient's case
- PT / OT evaluations.
- CM eval for discharge planning / placement.
- Seroquel PRN agitation - adjust med regimen as needed for control of agitation / behaviors.
- Echo with no significant change from prior
- Discussed on 02/22/[address] Nielsen of cardiology given abnormal rhythm on tele: Dr. Nielsen looked at the tele monitor and mentioned rhythm looks like artifact.
- Cardiology interrogated patient's device and result was okay
- Speech
- Neurology consult recommendations appreciated
Abnormal CXR
- CXR suggestive of degree of pulmonary edema. No SOB or chest pain. ProBNP 270.
- Given current issues with frequent urge to urinate / preoccupation with urination - will hold on any trial of diuretic, etc for now.
- Echo okay
- Follow for any dyspnea, hypoxemia, etc.
MESFIN versus progression of CKD
- SCr = 1.6 compared to prior baseline 1.2 (> 1 year ago)-->1.4
ASCVD
Prior CVA
- Stable. No new focal neurologic deficits at present.
- CT head negative as noted above.
- Continue current medications including Plavix.
Benign Hypertension
- Stable. Continue current meds with holding parameters.
Hypothyroidism
- Continue current T4 supplementation.
- Update TFTs.
BPH
- Stable. Continue tamsulosin.
- Straight cath in the ED for only 125 - no evidence of retention.
- Follow bladder scan protocol.
DVT Prophylaxis: SCDs. Heparin subq.
Code Status: Full
I spoke with patient's on 02/22/24, all questions and concerns were answered to satisfaction.
Anticipated Discharge: 24 - 48 hours
Subjective/Interval History
-
Date of Service: February 23, 2024
Patient was seen and examined. He denied any chest pain or shortness of breath when he was asked. He was drowsy but able to answer some questions.
Objective Data
-
Labs:
Laboratory Results
02/23/24
15:26
WBC Pending
Hgb Pending
Hct Pending
Plt Count Pending
Sodium Pending
Potassium Pending
Chloride Pending
Carbon Dioxide Pending
BUN Pending
Creatinine Pending
Glucose Pending
Calcium Pending
Vital Signs:
Vital Signs
Temp Pulse Resp BP Pulse Ox
98.0 F 61 18 117/62 96
02/23/24 12:00 02/23/24 12:00 02/23/24 12:00 02/23/24 12:00 02/23/24 12:00
I&O
02/22/24 02/23/24 02/24/24
06:59 06:59 06:59
Intake Total 1500 / 1500
Output Total 400 / 400
Balance 1100 / 1100
[2024-02-23 16:22] LABS: COVID-19 Antigen Negative (Negative)
[2024-02-23 16:34] LABS: % Basophils 0.5 % (0-2); % Eosinophils 1.9 % (0-6); % Immature Granulocytes 0.2 % (0-0.5); % Lymphocytes 18.9 % (20.5-51.1); % Monocytes 10.2 % (1.7-9.3); % Neutrophils 68.3 % (42.2-75.2); Absolute Basophils 0.1 10^3/uL (0-0.2); Absolute Eosinophils 0.2 10^3/uL (0-0.7); Absolute Lymphocytes 1.8 10^3/uL (1.2-3.4); Absolute Neutrophils 6.5 10^3/uL (1.4-6.5); Hemoglobin 15.1 g/dL (13.0-18.0); Mean Corp Hgb Conc. 34.3 g/dL (33.0-37.0); Mean Corpuscular Hgb 31.5 pg (27.0-31.0); Mean Corpuscular Volume 91.7 fL (80.0-94.0); Mean Platelet Volume 9.5 fL (7.4-10.4); Nucleated Red Blood Cells % 0 % (-); Platelet Count 230 10^3/uL (130-400); Red Cell Dist. Width 14.6 % (11.5-14.5); White Blood Cell Count 9.5 10^3/uL (4.8-10.8)
[2024-02-23 16:39] LABS: B.E. 1.7 mmol/L; HCO3 25.8 mmol/L (21-28); O2 Saturation % 97.3 % (94-98); PCO2 38 mmHg (35-48); PO2 77 mmHg (83-108); pH 7.44 (7.35-7.45)
[2024-02-23 16:52] LABS: ALT (SGPT) 21 U/L (0-50); AST (SGOT) 21 U/L (17-59); Albumin 4.3 g/dl (3.5-5.0); Alkaline Phosphatase 119 U/L (38-126); Blood Urea Nitrogen 22 mg/dl (9-20); Calcium 9.7 mg/dl (8.4-10.2); Carbon Dioxide 25 mmol/L (22-30); Chloride 103 mmol/L (98-107); Estimated Creatinine Clearance 42 ml/min; Glucose 104 mg/dl (70-99); Magnesium 2.2 mg/dl (1.6-2.3); Phosphorus 4.4 mg/dl (2.5-4.5); Potassium 4.5 mmol/L (3.5-5.1); Sodium 140 mmol/L (135-145); Total Bilirubin 0.9 mg/dl (0.2-1.3); Total Protein 7.2 g/dl (6.3-8.2); eGFR 49.56
[2024-02-23 16:59] LABS: Ammonia 22 umol/L (9-30)
[2024-02-23] MEDS: PROTONIX PO (17:15)
[2024-02-23] MEDS: PLAVIX 75 MG PO (21:47)
[2024-02-23] MEDS: SENOKOT PO ×2 (21:48→22:08)
[2024-02-23] MEDS: NSS 500 IV (22:46)
[2024-02-23] MEDS: XALATAN OPHTHALMIC SOLUTION 1 DROP BOTH EYES (22:54)
[2024-02-24] VITALS (7 sets, daily range): BP systolic 112–185; BP diastolic 52–74; BMI 21.9
[2024-02-24] MEDS: NORVASC 10 MG PO (09:15)
[2024-02-24] MEDS: FLOMAX 0.4 MG PO ×2 (09:15→21:40)
[2024-02-24] MEDS: HEPARIN SC ×2 (09:16→12:17)
[2024-02-24] MEDS: SYNTHROID 50 MCG PO (09:18)
[2024-02-24] MEDS: COMBIGAN EYE DROPS 1 DROP BOTH EYES ×2 (09:19→21:40)
[2024-02-24 11:14] LABS: Blood Urea Nitrogen 23 mg/dl (9-20); Calcium 9.2 mg/dl (8.4-10.2); Carbon Dioxide 23 mmol/L (22-30); Chloride 104 mmol/L (98-107); Estimated Creatinine Clearance 43 ml/min; Glucose 123 mg/dl (70-99); Potassium 4.3 mmol/L (3.5-5.1); Sodium 138 mmol/L (135-145); eGFR 54.17
--- NOTE | 2024-02-24 15:16 | PTCARENOTE ---
Assumed care of pt from previous nurse, pt denies pain. Pt at bedside, rings for pt. No noted agitation. pt call garcia is within reach, pt does not ring, rings for pt, will cont to monitor.
--- NOTE | 2024-02-24 15:29 | PTOTSP ---
Speech Pathology Evaluation
84M with admission s/p fall p/w an impaired oropharyngeal swallow characterized by poor bolus formation of regular solids. Unable to r/o silent aspiration at bedside this date. Aspiration risk is increased 2/2 increased lethargy, hx of dementia, CXR
concerning for PNA, and elevated WBC.
Recommend:
1. Trial soft and bite sized (IDDSI 6), thin liquid (IDDSI 0)
2. Meds as tolerated
3. Safe swallowing strategies: FULL supervision, partial assistance, ONLY FEED WHEN AWAKE AND ALERT, ensure mouth is clean s/p PO
4. ICT SUPPORT ENGINEER service to f/u re: to assess for diet level tolerance and upgrade as able
--- NOTE | 2024-02-24 15:41 | W.PN.HOSP.TC ---
Today's Communication/Plan
-
SNF placement pending
PT/OT
Assessment / Plan
Assessment / Plan
Echocardiogram (as per 2 year olds preschool teacher's report)
'CONCLUSIONS
1. Technically difficult and limited quality study. Patient was reported to
be very combative during the study.
2. Left ventricle: Grossly normal systolic function estimated above 50% by
visual estimation
3. Right ventricle: Normal
4. Atria: Not well-visualized
5. Mitral valve: No significant mitral regurgitation noted during this limited
study
6. Aortic valve: No aortic insufficiency
7. Tricuspid valve: Mild tricuspid regurgitation. Estimated pulmonary artery
systolic pressures were 20-25 mmHg
8. When compared to the most recent echocardiogram from 01/18/2019 there have
been no significant changes. The present study was technically difficult due
to patient agitation and combativeness'

Physical Exam
General: Not in acute distress
HEENT: Moist mucous membranes
Respiratory: CTAB
Cardiac: S1/S2 and Regular Rhythm
GI: Soft, Non Tender, Non Distended and Normal Bowel Sounds
Musculoskeletal: No Cyanosis and No Edema
Neuro: Awake, Alert and Other (Not oriented to place or time. Restless / slightly agitated.); Does not follow most commands due to lethargy.
Assessment/Plan
Patient is an 84y M with PMH significant fro senile dementia, prior CVA, HTN and CKD who presents to ED for evaluation after fall at home.
84y M brought in by family who can no longer care for him at home. Dementia / agitation / frequent falls. CM eval. PRN Seroquel for now. ? Psych eval if needed.
Fall at Home
Possible Seizure with postictal state observed by patient's -- mentioned on 02/22/24
Senile Dementia with Behavioral Disturbance
Toxic metabolic encephalopathy
- Family no longer able to care for patient at home safely.
- CT head unremarkable and patient back to baseline status per family.
- UA not indicative of infection.
- Checked for labwork for possible causes of encephalopathy
- Per neurology, no further neuroimaging for encephalopathy needed and MRI is not advised in this patient's case
- PT / OT evaluations.
- CM eval for discharge planning / placement.
- Seroquel PRN agitation - adjust med regimen as needed for control of agitation / behaviors.
- Echo with no significant change from prior
- Discussed on 02/22/[address] Nielsen of cardiology given abnormal rhythm on tele: Dr. Nielsen looked at the tele monitor and mentioned rhythm looks like artifact.
- Cardiology interrogated patient's device and result was okay
- Speech evaluation appreciated
- Neurology consult recommendations appreciated
Abnormal CXR
- CXR suggestive of degree of pulmonary edema. No SOB or chest pain. ProBNP 270.
- Given current issues with frequent urge to urinate / preoccupation with urination - will hold on any trial of diuretic, etc for now.
- Echo okay
- Follow for any dyspnea, hypoxemia, etc.
MESFIN versus progression of CKD
- SCr = 1.6 compared to prior baseline 1.2 (> 1 year ago)-->1.4-->1.3
ASCVD
Prior CVA
- Stable. No new focal neurologic deficits at present.
- CT head negative as noted above.
- Continue current medications including Plavix.
Benign Hypertension
- Stable. Continue current meds with holding parameters.
Hypothyroidism
- Continue current T4 supplementation.
- Update TFTs.
BPH
- Stable. Continue tamsulosin.
- Straight cath in the ED for only 125 - no evidence of retention.
- Follow bladder scan protocol.
DVT Prophylaxis: SCDs. Lovenox.
Code Status: Full
Diet: Trial soft and bite sized solids (IDDSI 6) and thin liquids (as per speech recommendation on 02/24/24)
I spoke with patient's on 02/22/24 and 02/24/24, all questions and concerns were answered to satisfaction.
Anticipated Discharge: > 48 hours
Subjective/Interval History
-
Date of Service: February 24, 2024
Patient was seen and examined. He was more alert and interactive today.
Objective Data
-
Labs:
Laboratory Results
02/24/24
10:05
Sodium 138
Potassium 4.3
Chloride 104
Carbon Dioxide 23
BUN 23 H
Creatinine 1.3
Glucose 123 H
Calcium 9.2
Vital Signs:
Vital Signs
Temp Pulse Resp BP Pulse Ox
97.5 F 60 20 132/65 95
02/24/24 11:00 02/24/24 11:00 02/24/24 11:00 02/24/24 11:00 02/24/24 11:00
I&O
02/23/24 02/24/24 02/25/24
06:59 06:59 06:59
Intake Total 1500 / 1500
Output Total 400 / 400 100 / 100
Balance 1100 / 1100 -100 / -100
[2024-02-24] MEDS: PROTONIX 40 MG PO (17:59)
[2024-02-24] MEDS: LOVENOX 40 MG SC (18:00)
[2024-02-24] MEDS: PLAVIX 75 MG PO (21:40)
[2024-02-24] MEDS: XALATAN OPHTHALMIC SOLUTION 1 DROP BOTH EYES (21:41)
[2024-02-24] MEDS: SENOKOT 17.2 MG PO (21:52)
[2024-02-25 00:32] VITALS: BP 149/68
[2024-02-25 03:31] VITALS: BP 139/75
--- NOTE | 2024-02-25 04:45 | W.PN.UPDATE ---
Update Note
Progress Note Update
Had lengthy conversation with patient's about present situation. She asked me to review chart for any possible reason for increased confusion, agitation and disorientation. Noted history of similar symptoms during previous hospital admissions.
Seroquel added prn but only used once. Zyprexa also given IM once. CT head negative for acute stroke. Will ask psychiatry for recommendations. believes recent fall related to TIA presenting also with garbled speech which cleared quickly after
his fall. Plan is for SNF for skilled rehab followed by possible memory care admission. His behavior is more manageable when at home in familiar environment but with worsening mental status (hallucinations, picking at the air, increased sleeping
making assessment by physical therapy difficult) that goal is doubtful.
[2024-02-25 06:00] VITALS: BMI 22.2
[2024-02-25 07:30] VITALS: BP 110/57
[2024-02-25] MEDS: NORVASC 10 MG PO (08:25)
[2024-02-25] MEDS: FLOMAX 0.4 MG PO ×2 (08:25→21:19)
[2024-02-25] MEDS: SYNTHROID 50 MCG PO (08:30)
[2024-02-25] MEDS: COMBIGAN EYE DROPS 1 DROP BOTH EYES ×2 (08:30→21:19)
[2024-02-25 09:09] LABS: Amphetamines Negative (Negative); Barbiturates Negative (Negative); Benzodiazepines Negative (Negative); Buprenorphine Negative (Negative); Cocaine Negative (Negative); Marijuana Negative (Negative); Methadone Negative (Negative); Methamphetamines Negative (Negative); Opiates Negative (Negative); Phencyclidine Negative (Negative); Tricyclic Antidepressants Negative (Negative)
[2024-02-25 11:30] VITALS: BP 114/59
--- NOTE | 2024-02-25 12:24 | W.PN.UPDATE ---
Update Note
Progress Note Update
Psychiatric Evaluation dictated.
Patient is unable to provide any meaningful information. was visiting so I was able to talk to her. She reports patient has no previous psychiatric history prior to developing dementia. Recently he has been more irritable although not
physically aggressive.
Apparently he has been incontinent but wanting to frequently go to the bathroom and this resulted in falls. He was always very active and could not accept limitations in function as he is getting older. In the hospital he has been agitated on and
off ; presently calm and dosing off.
Family is very concerned about use of psychotropic meds as they worry about potential side effects. He was apparently given prn Ativan in the past and had idiosyncratic reaction.
At this point I would stay with the prn Seroquel, if not effective Risperdal or Zyprexa could be tried.
We will F/U through department.
--- NOTE | 2024-02-25 14:24 | CM ---
CM reviewed chart, met with patients and son. reports she is touring [facility] and [facility] today. CM provided additional local facilities for . Psych following. reports she is likely looking to transition patient to Memory Care
after rehab. CM will continue to follow for all discharge planning needs.
Plan; SNF pending accepting facility, will need insurance auth.
[2024-02-25 15:30] VITALS: BP 138/73
--- NOTE | 2024-02-25 16:50 | W.PN.HOSP.TC ---
Today's Communication/Plan
-
SNF placement pending
Appreciate psychiatry
Assessment / Plan
Assessment / Plan
Echocardiogram (as per animal cruelty investigator's report)
'CONCLUSIONS
1. Technically difficult and limited quality study. Patient was reported to
be very combative during the study.
2. Left ventricle: Grossly normal systolic function estimated above 50% by
visual estimation
3. Right ventricle: Normal
4. Atria: Not well-visualized
5. Mitral valve: No significant mitral regurgitation noted during this limited
study
6. Aortic valve: No aortic insufficiency
7. Tricuspid valve: Mild tricuspid regurgitation. Estimated pulmonary artery
systolic pressures were 20-25 mmHg
8. When compared to the most recent echocardiogram from 01/18/2019 there have
been no significant changes. The present study was technically difficult due
to patient agitation and combativeness'

Physical Exam
General: Not in acute distress
HEENT: Moist mucous membranes
Respiratory: CTAB
Cardiac: S1/S2 and Regular Rhythm
GI: Soft, Non Tender, Non Distended and Normal Bowel Sounds
Musculoskeletal: No Cyanosis and No Edema
Neuro: Awake, Alert and Other (Not oriented to place or time. Restless / slightly agitated.); Does not follow most commands due to lethargy.
Assessment/Plan
Patient is an 84y M with PMH significant fro senile dementia, prior CVA, HTN and CKD who presents to ED for evaluation after fall at home.
84y M brought in by family who can no longer care for him at home. Dementia / agitation / frequent falls. CM eval. PRN Seroquel for now. ? Psych eval if needed.
Fall at Home
Possible Seizure with postictal state observed by patient's -- mentioned on 02/22/24
Senile Dementia with Behavioral Disturbance
Toxic metabolic encephalopathy
- Family no longer able to care for patient at home safely.
- CT head unremarkable and patient back to baseline status per family.
- UA not indicative of infection.
- Checked for lab-work for possible causes of encephalopathy
- Per neurology, no further neuroimaging for encephalopathy needed and MRI is not advised in this patient's case
- PT / OT evaluations.
- CM eval for discharge planning / placement.
- Seroquel PRN agitation - adjust med regimen as needed for control of agitation / behaviors.
- Echo with no significant change from prior
- Discussed on 02/22/[address] Nielsen of cardiology given abnormal rhythm on tele: Dr. Nielsen looked at the tele monitor and mentioned rhythm looks like artifact.
- Cardiology interrogated patient's device and result was okay
- Speech evaluation appreciated
- Neurology consult recommendations appreciated
- Psychiatry consulted, appreciate recommendations: continue PRN Seroquel, if not effective then could do Risperdal or Zyprexa
Abnormal Chest X-Ray
- CXR suggestive of degree of pulmonary edema. No SOB or chest pain. ProBNP 270.
- Given current issues with frequent urge to urinate / preoccupation with urination - will hold on any trial of diuretic, etc for now.
- Echo okay
- Follow for any dyspnea, hypoxemia, etc.
MESFIN versus progression of CKD
- SCr = 1.6 compared to prior baseline 1.2 (> 1 year ago)-->1.4-->1.3
ASCVD
Prior CVA
- Stable. No new focal neurologic deficits at present.
- CT head negative as noted above.
- Continue current medications including Plavix.
Benign Hypertension
- Stable. Continue current medications with holding parameters.
Hypothyroidism
- Continue current T4 supplementation.
- Update TFTs.
Urinary Frequency
BPH
- Stable. Continue tamsulosin.
- Straight cath in the ED for only 125 - no evidence of retention.
- Follow bladder scan protocol.
- Patient is concerned BPH is getting worse --> consulted urology, appreciate their evaluation and recommendations
DVT Prophylaxis: SCDs. Lovenox.
Code Status: Full Code
Diet: Trial soft and bite sized solids (IDDSI 6) and thin liquids (as per speech recommendation on 02/24/24)
I spoke with patient's on 02/22/24, 02/24/24 and 02/25/24, all questions and concerns were answered to satisfaction.
Anticipated Discharge: 24 - 48 hours
Subjective/Interval History
-
Date of Service: February 25, 2024
Patient was seen and examined. Patient's reported patient has been having hallucinations now and also is having to urinate in the middle of the night.
Objective Data
-
Vital Signs:
Vital Signs
Temp Pulse Resp BP Pulse Ox
97.5 F 61 18 114/59 94
02/25/24 11:30 02/25/24 11:30 02/25/24 11:30 02/25/24 11:30 02/25/24 11:30
I&O
02/24/24 02/25/24 02/26/24
06:59 06:59 06:59
Intake Total 900 / 900
Output Total 100 / 100 525 / 525
Balance -100 / -100 375 / 375
[2024-02-25] MEDS: LOVENOX 40 MG SC (18:34)
[2024-02-25] MEDS: PROTONIX 40 MG PO (18:34)
[2024-02-25] MEDS: PLAVIX 75 MG PO (21:19)
[2024-02-25] MEDS: SENOKOT 17.2 MG PO (21:20)
[2024-02-25] MEDS: XALATAN OPHTHALMIC SOLUTION 1 DROP BOTH EYES (22:35)
[2024-02-25 23:14] LABS: Urine Albumin Negative (Neg - Trace); Urine Bilirubin Negative (Negative); Urine Character Clear (Clear); Urine Color Yellow; Urine Glucose Negative (Negative); Urine Ketone Negative (Negative); Urine Leukocyte Negative (Negative); Urine Nitrite Negative (Negative); Urine Occult Blood Negative (Negative); Urine Urobilinogen Negative (Neg - 1+)
[2024-02-26 00:01] VITALS: BP 119/67
[2024-02-26 06:00] VITALS: BMI 22.0
[2024-02-26] MEDS: SYNTHROID 50 MCG PO (06:35)
--- NOTE | 2024-02-26 06:51 | CON.MD ---
Consultation - Medical
-
see dictated note
pt followed regularly by dr longoria
long hx of bph/frequency/urgency and nocturia
on flomax 0.8mg- other meds have been tried and proved ineefective or not tolerated
voiding sx's compounded by co-exisiting hx of cva/sleep apnea and intolerance of cpap and dementia
admitted with fall and worsening MS
ua negative and pvr minimal
requested gu eval because of worsening nocturia and incontinence
records all reviewed
limited options at this time
reviewed with at bedside
continue flomax
outpt f/u
[2024-02-26 07:00] VITALS: BP 160/82
[2024-02-26 07:43] LABS: % Basophils 0.7 % (0-2); % Eosinophils 5.7 % (0-6); % Immature Granulocytes 0.3 % (0-0.5); % Lymphocytes 27.3 % (20.5-51.1); % Monocytes 12.5 % (1.7-9.3); % Neutrophils 53.5 % (42.2-75.2); Absolute Basophils 0.1 10^3/uL (0-0.2); Absolute Eosinophils 0.5 10^3/uL (0-0.7); Absolute Lymphocytes 2.6 10^3/uL (1.2-3.4); Absolute Monocytes 1.2 10^3/uL (0.1-0.6); Hematocrit 41.3 % (39.0-52.0); Mean Corp Hgb Conc. 33.9 g/dL (33.0-37.0); Mean Corpuscular Hgb 30.4 pg (27.0-31.0); Mean Corpuscular Volume 89.6 fL (80.0-94.0); Mean Platelet Volume 9.2 fL (7.4-10.4); Nucleated Red Blood Cells % 0 % (-); Platelet Count 214 10^3/uL (130-400); Red Blood Cell Count 4.61 10^6/uL (4.70-6.10); Red Cell Dist. Width 14.6 % (11.5-14.5); White Blood Cell Count 9.4 10^3/uL (4.8-10.8)
[2024-02-26 08:41] LABS: Blood Urea Nitrogen 17 mg/dl (9-20); Calcium 9.4 mg/dl (8.4-10.2); Carbon Dioxide 27 mmol/L (22-30); Chloride 103 mmol/L (98-107); Estimated Creatinine Clearance 46 ml/min; Glucose 97 mg/dl (70-99); Potassium 4.1 mmol/L (3.5-5.1); Sodium 140 mmol/L (135-145); eGFR 59.63
[2024-02-26] MEDS: FLOMAX 0.4 MG PO ×2 (10:17→22:23)
[2024-02-26] MEDS: NORVASC 10 MG PO (10:17)
[2024-02-26] MEDS: COMBIGAN EYE DROPS 1 DROP BOTH EYES ×2 (10:18→22:23)
--- NOTE | 2024-02-26 12:21 | CM ---
integrity manager met with patient and spouse this am, med sitter in place. Physical therapy are recommending skilled placement. Options reviewed with patient's spouse, and wrapper caser will make referrals as soon as patient is off med sitter.
Plan; Will send referrals as soon as patient is off med sitter.
--- NOTE | 2024-02-26 13:15 | W.PN.HOSP.TC ---
Today's Communication/Plan
-
Discharge planning
Assessment / Plan
Assessment / Plan
Gen-awake, not alert, not oriented, NAD
HEENT-NC, AT, anicteric, clear oral mm
Neck-supple
CV-reg, no M, +S1/S2
Lungs-clear B/L
Abd-soft, NT, ND
Ext-no edema
Musculoskeletal-no cyanosis, clubbing
Skin-warm and dry
Neuro-grossly non-focal
Psych-calm, cooperative
Fall at Home -new onset ambulatory dysfunction and dysarthria according to prior to admission. believes he may have had a stroke. Differential diagnosis includes seizure versus stroke. MRI brain not pursued due to high risk.
Senile Dementia with Behavioral Disturbance
Toxic metabolic encephalopathy, acute -resolved.
- Family no longer able to care for patient at home safely.
- CT head unremarkable and patient back to baseline status per family.
- UA not indicative of infection.
- Checked for lab-work for possible causes of encephalopathy
- Per neurology, no further neuroimaging for encephalopathy needed and MRI is not advised in this patient's case
- PT / OT evaluations.
- CM eval for discharge planning / placement.
- Seroquel PRN agitation - adjust med regimen as needed for control of agitation / behaviors.
- Echo with no significant change from prior
- Discussed on 02/22/[address] Nielsen of cardiology given abnormal rhythm on tele: Dr. Nielsen looked at the tele monitor and mentioned rhythm looks like artifact.
- Cardiology interrogated patient's device and result was okay
- Speech evaluation appreciated
- Neurology consult recommendations appreciated
- Psychiatry consulted, appreciate recommendations: continue PRN Seroquel, if not effective then could do Risperdal or Zyprexa
Abnormal Chest X-Ray -repeat chest x-ray 02/22 shows improving bibasilar airspace disease. No pleural effusions. No vascular congestion.
MESFIN -present on admission but now improved. Perhaps due to volume depletion.
ASCVD
Prior CVA
- Stable. No new focal neurologic deficits at present.
- CT head negative as noted above.
- Continue current medications including Plavix.
Essential hypertension - Stable. Continue current medications with holding parameters.
Hypothyroidism - Continue current T4 supplementation.
- Update TFTs.
Urinary Frequency/BPH
- Stable. Continue tamsulosin.
- Straight cath in the ED for only 125 - no evidence of retention.
- Follow bladder scan protocol.
- Patient is concerned BPH is getting worse --> consulted urology, appreciate their evaluation and recommendations
DVT Prophylaxis: SCDs. Lovenox.
Full code
Diet: Trial soft and bite sized solids (IDDSI 6) and thin liquids (as per speech recommendation on 02/24/24)
Updated at the bedside.
Dispo -stable for discharge to SNF. Updated case management.
Anticipated Discharge: 24 - 48 hours
Subjective/Interval History
-
Date of Service: February 26, 2024
Patient seen and examined. No complaints.
Objective Data
-
Labs:
Laboratory Results
02/26/24
07:21
WBC 9.4
Hgb 14.0
Hct 41.3
Plt Count 214
Sodium 140
Potassium 4.1
Chloride 103
Carbon Dioxide 27
BUN 17
Creatinine 1.2
Glucose 97
Calcium 9.4
Vital Signs:
Vital Signs
Temp Pulse Resp BP Pulse Ox
97.2 F 62 18 160/82 98
02/26/24 07:00 02/26/24 07:00 02/26/24 07:00 02/26/24 07:00 02/26/24 07:00
I&O
02/25/24 02/26/24 02/27/24
06:59 06:59 06:59
Intake Total 900 / 900 520 / 760 240 / 240
Output Total 525 / 525 200 / 200
Balance 375 / 375 320 / 560 240 / 240
Review of Systems
-
Unable to obtain full review of systems at this time due to: Dementia
History Source: Patient
All other systems: Reviewed and negative
[2024-02-26 15:00] VITALS: BP 155/73
[2024-02-26] MEDS: LOVENOX 40 MG SC (18:44)
[2024-02-26] MEDS: PROTONIX 40 MG PO (18:44)
[2024-02-26] MEDS: PLAVIX 75 MG PO (22:24)
[2024-02-26] MEDS: XALATAN OPHTHALMIC SOLUTION 1 DROP BOTH EYES (22:24)
[2024-02-26] MEDS: SENOKOT 17.2 MG PO (22:24)
[2024-02-26 22:56] VITALS: BP 147/61
[2024-02-27 02:27] VITALS: BP 147/61
[2024-02-27 06:00] VITALS: BMI 21.6
[2024-02-27] MEDS: SYNTHROID 50 MCG PO (06:40)
[2024-02-27 07:45] VITALS: BP 137/75
[2024-02-27] MEDS: NORVASC 10 MG PO (09:12)
[2024-02-27] MEDS: FLOMAX 0.4 MG PO ×2 (09:13→20:40)
[2024-02-27] MEDS: COMBIGAN EYE DROPS 1 DROP BOTH EYES ×2 (09:14→20:41)
--- NOTE | 2024-02-27 09:38 | W.PN.HOSP.TC ---
Addendum entered and electronically signed by Simon Mensah DO 02/27/24 12:08:
MESFIN on CKD 3a - MESFIN improved.
Original Note:
Today's Communication/Plan
-
Discharge planning
Assessment / Plan
Assessment / Plan
Gen-awake, not alert, not oriented, NAD
HEENT-NC, AT, anicteric, clear oral mm
Neck-supple
CV-reg, no M, +S1/S2
Lungs-clear B/L
Abd-soft, NT, ND
Ext-no edema
Musculoskeletal-no cyanosis, clubbing
Skin-warm and dry
Neuro-grossly non-focal
Psych-calm, cooperative
Fall at Home -new onset ambulatory dysfunction and dysarthria according to prior to admission. believes he may have had a stroke. Differential diagnosis includes seizure versus stroke. MRI brain not pursued due to high risk.
Senile Dementia with Behavioral Disturbance
Toxic metabolic encephalopathy, acute -resolved.
- Family no longer able to care for patient at home safely.
- CT head unremarkable and patient back to baseline status per family.
- UA not indicative of infection.
- Checked for lab-work for possible causes of encephalopathy
- Per neurology, no further neuroimaging for encephalopathy needed and MRI is not advised in this patient's case
- PT / OT evaluations.
- CM eval for discharge planning / placement.
- Seroquel PRN agitation - adjust med regimen as needed for control of agitation / behaviors.
- Echo with no significant change from prior
- Discussed on 02/22/[address] Nielsen of cardiology given abnormal rhythm on tele: Dr. Nielsen looked at the tele monitor and mentioned rhythm looks like artifact.
- Cardiology interrogated patient's device and result was okay
- Speech evaluation appreciated
- Neurology consult recommendations appreciated
- Psychiatry consulted, appreciate recommendations: continue PRN Seroquel, if not effective then could do Risperdal or Zyprexa
Abnormal Chest X-Ray -repeat chest x-ray 02/22 shows improving bibasilar airspace disease. No pleural effusions. No vascular congestion.
MESFIN -present on admission but now improved. Perhaps due to volume depletion.
ASCVD
Prior CVA
- Stable. No new focal neurologic deficits at present.
- CT head negative as noted above.
- Continue current medications including Plavix.
Essential hypertension - Stable. Continue current medications with holding parameters.
Hypothyroidism - Continue current T4 supplementation.
- Update TFTs.
Urinary Frequency/BPH
- Stable. Continue tamsulosin.
- Straight cath in the ED for only 125 - no evidence of retention.
- Follow bladder scan protocol.
- Patient is concerned BPH is getting worse --> consulted urology, appreciate their evaluation and recommendations
DVT Prophylaxis: SCDs. Lovenox.
Full code
Diet: Trial soft and bite sized solids (IDDSI 6) and thin liquids (as per speech recommendation on 02/24/24)
Updated at the bedside.
Dispo -stable for discharge to SNF. Updated case management.
Anticipated Discharge: Within 24 hours
Subjective/Interval History
-
Date of Service: February 27, 2024
Patient seen and examined. No complaints. at the bedside.
Objective Data
-
Vital Signs:
Vital Signs
Temp Pulse Resp BP Pulse Ox
97.6 F 61 20 137/75 97
02/27/24 07:45 02/27/24 07:45 02/27/24 07:45 02/27/24 07:45 02/27/24 07:45
I&O
02/26/24 02/27/24 02/28/24
06:59 06:59 06:59
Intake Total 520 / 760 1920 / 1920
Output Total 200 / 200 375 / 375
Balance 320 / 560 1545 / 1545
Review of Systems
-
Unable to obtain full review of systems at this time due to: Dementia
History Source: Patient
All other systems: Reviewed and negative
--- NOTE | 2024-02-27 11:25 | W.PN.UPDATE ---
Addendum entered and electronically signed by REYNA Cai 02/27/24 11:39:
Psych will sign off, please call or reconsult with any new or immediate needs.
Original Note:
Update Note
Progress Note Update
Patient seen with at bedside, chart reviewed, discussed with staff. Mr. Terrell is resting comfortably. No acute events reported overnight. He is not agitated nor responding to internal stimuli. reports he has been fairly calm or easy
enough to redirect. Seroquel PRN is available and continues to request no standing psychotropics at this time which appears to be appropriate.
Impression/recommendations: Dementia with Behavioral Disturbance - Continue the p.r.n.Seroquel as needed for agitation that is unable to be redirected. CM following for SNF placement.
--- NOTE | 2024-02-27 11:44 | PN.CDI ---
CDI
- -
CDI:
Physician Documentation Request
Admit Date: 02/23/24 08:09
Dear Doctor Rodrick,
H&P states patient has history of CKD III.
Progress notes 'MESFIN vs progression of CKD'
02/25 hospitalist progress note state ' MESFIN -present on admission but now improved'
Laboratory Tests
02/21/24 02/23/24 02/24/24
22:02 16:24 10:05
Creatinine 1.6 H 1.4 H 1.3
02/26/24
07:21
Creatinine 1.2
Based on the above information and the recognized standard for respiratory failure could you please verify this diagnoses is still accurate and reflective of the patient�s condition to ensure quality of the medical record
____ - MESFIN is/was present and is a clinical diagnosis based on (please include this additional support in the
medical record)
____ - MESFIN ruled out, CKD III only
____ - Other
Criteria for MESFIN*
1 Increase in serum creatinine by > or = to 0.3 mg/dL (> or = to 26.5 micromol/L) within 48 hours, OR
2 Increase in serum creatinine to > or = to 1.5 times baseline, which is known or presumed to have occurred within 7 days, OR
3 Urine volume < 0.5 nL/kg/hour for six hours
Use of terms such as suspected, likely, concern for, or probable (associated with a specific diagnosis that is being evaluated, monitored, or treated as if it exists) are acceptable and can be coded in the inpatient setting, when documented at the
time of discharge.
Thank you,
Mago Banerjee RN, BSN
CDI Specialist
tiger text
Please use your independent medical judgment in providing your response.
*Source: Kidney Disease: Improving Global Outcomes (KDIGO) 2012
[2024-02-27 11:45] VITALS: O2SAT 98
[2024-02-27 11:55] VITALS: PULSE 60; O2SAT 98
--- NOTE | 2024-02-27 14:22 | CM ---
Chart reviewed and patient's spouse toured [facility] and [facility] yesterday, referrals sent however there are no beds available, disability case manager reached out to patient's spouse to review other options for skilled.
Plan; Skilled placement.
[2024-02-27 15:40] VITALS: BP 145/80
[2024-02-27] MEDS: LOVENOX 40 MG SC (17:41)
[2024-02-27] MEDS: PROTONIX 40 MG PO (17:42)
[2024-02-27] MEDS: XALATAN OPHTHALMIC SOLUTION 1 DROP BOTH EYES (21:33)
[2024-02-27] MEDS: PLAVIX 75 MG PO (21:33)
[2024-02-27] MEDS: SENOKOT 17.2 MG PO (21:33)
[2024-02-27 23:55] VITALS: BP 125/64
[2024-02-28 06:00] VITALS: BMI 21.8
[2024-02-28] MEDS: SYNTHROID 50 MCG PO (06:26)
[2024-02-28 07:30] VITALS: BP 115/66
[2024-02-28] MEDS: NORVASC 10 MG PO (08:39)
[2024-02-28] MEDS: FLOMAX 0.4 MG PO ×2 (08:40→21:04)
[2024-02-28] MEDS: COMBIGAN EYE DROPS 1 DROP BOTH EYES ×2 (08:40→21:05)
[2024-02-28 11:15] VITALS: BP 140/68
--- NOTE | 2024-02-28 12:51 | W.PN.HOSP.TC ---
Today's Communication/Plan
-
Discharge planning
Assessment / Plan
Assessment / Plan
Gen-awake, not alert, not oriented, NAD
HEENT-NC, AT, anicteric, clear oral mm
Neck-supple
CV-reg, no M, +S1/S2
Lungs-clear B/L
Abd-soft, NT, ND
Ext-no edema
Musculoskeletal-no cyanosis, clubbing
Skin-warm and dry
Neuro-grossly non-focal
Psych-calm, cooperative
Fall at Home -new onset ambulatory dysfunction and dysarthria according to prior to admission. believes he may have had a stroke. Differential diagnosis includes seizure versus stroke. MRI brain not pursued due to high risk.
Senile Dementia with Behavioral Disturbance
Toxic metabolic encephalopathy, acute -resolved.
- Family no longer able to care for patient at home safely.
- CT head unremarkable and patient back to baseline status per family.
- UA not indicative of infection.
- Checked for lab-work for possible causes of encephalopathy
- Per neurology, no further neuroimaging for encephalopathy needed and MRI is not advised in this patient's case
- PT / OT evaluations.
- CM eval for discharge planning / placement.
- Seroquel as needed although has not required any doses. Behaviors are well-controlled.
- Echo with no significant change from prior
- Discussed on 02/22/[address] Nielsen of cardiology given abnormal rhythm on tele: Dr. Nielsen looked at the tele monitor and mentioned rhythm looks like artifact.
- Cardiology interrogated patient's device and result was okay
Abnormal Chest X-Ray -repeat chest x-ray 02/22 shows improving bibasilar airspace disease. No pleural effusions. No vascular congestion.
MESFIN -present on admission but now improved. Perhaps due to volume depletion.
ASCVD
Prior CVA
- Stable. No new focal neurologic deficits at present.
- CT head negative as noted above.
- Continue current medications including Plavix.
Essential hypertension - Stable. Continue current medications with holding parameters.
Hypothyroidism - Continue current T4 supplementation.
- Update TFTs.
Urinary Frequency/BPH
- Stable. Continue tamsulosin.
- Straight cath in the ED for only 125 - no evidence of retention.
- Follow bladder scan protocol.
- Patient is concerned BPH is getting worse --> consulted urology, appreciate their evaluation and recommendations
DVT Prophylaxis: SCDs. Lovenox.
Full code
Son updated at the bedside.
Dispo -stable for discharge to SNF. He has been accepted by [facility] today, awaiting insurance authorization.
Anticipated Discharge: Today
Subjective/Interval History
-
Date of Service: February 28, 2024
Patient seen and examined. No complaints.
Objective Data
-
Vital Signs:
Vital Signs
Temp Pulse Resp BP Pulse Ox
97.7 F 61 18 140/68 97
02/28/24 11:15 02/28/24 11:15 02/28/24 11:15 02/28/24 11:15 02/28/24 11:15
I&O
02/27/24 02/28/24 02/29/24
06:59 06:59 06:59
Intake Total 1920 / 1920 480 / 480
Output Total 375 / 375 650 / 650
Balance 1545 / 1545 -170 / -170
Review of Systems
-
Unable to obtain full review of systems at this time due to: Dementia
History Source: Patient
All other systems: Reviewed and negative
--- NOTE | 2024-02-28 13:52 | CM ---
Addendum entered by Criselda Osuna 02/28/24 15:37:
Patient has been approved for 7 days skilled Auth [id number], 02/29/24-03/06/24, follow up needs to be faxed to [phone]. Auth provided to admissions at [facility].
Original Note:
manager licensing reviewed patient's chart and patient has been accepted at [facility] today, patient will need Auth from insurance however patient is ambulating 80 feet min assist with no assisted device and may not be approved for skilled placement.
Plan; Skilled placement at [facility] if approved by patient's insurance.
[2024-02-28 15:00] VITALS: BP 153/70
[2024-02-28] MEDS: PROTONIX 40 MG PO (17:26)
[2024-02-28] MEDS: LOVENOX 40 MG SC (17:26)
[2024-02-28] MEDS: PLAVIX 75 MG PO (21:05)
[2024-02-28] MEDS: SENOKOT 17.2 MG PO (21:05)
[2024-02-28] MEDS: XALATAN OPHTHALMIC SOLUTION 1 DROP BOTH EYES (21:06)
[2024-02-28 23:06] VITALS: BP 136/69
[2024-02-29] MEDS: SYNTHROID 50 MCG PO (05:47)
[2024-02-29 05:56] VITALS: BMI 21.8
--- NOTE | 2024-02-29 07:35 | W.DS.TRANS ---
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
-
Discharge Instructions:
Discharge Diagnosis/Procedures MESFIN, CKD 3A, acute TME, ambulatory dysfunction
Diet Other diet,2 Gram Sodium
Additional Diets IDDSI 6, thin liquids
Activity With assistance
Driving Restrictions No driving
Bathing Restrictions None
Instructions:
Stand-Alone Forms:
Changes to Home Medications: No
Discharge Medications:
DC Medications w/original date entered in [employer]
bimatoprost 0.01 % eye drops (Lumigan) 1 drp BOTH EYES HS Eye Condition 01/22/19
brimonidine 0.2 %-timolol 0.5 % eye drops (Combigan) 1 drp BOTH EYES BID Eye Condition 01/22/19
calcium 500 mg (as carbonate)-vitamin D3 5 mcg (200 unit) tablet (Oyster Shell Calcium-Vitamin D3) 1 tab PO DAILY Supplement 01/22/19
coenzyme Q10 200 mg capsule (Co Q-10) 200 mg PO DAILY Supplement 01/22/19
cyanocobalamin (vitamin B-12) 1,000 mcg tablet 3,000 mcg PO DAILY Supplement 01/22/19
glucosamine [id number] venita 1,500 mg-400 unit-100 mg tablet (Osteo Bi-Flex (5-Loxin)) 1 ea PO DAILY Supplement 01/22/19
levothyroxine 50 mcg tablet 50 mcg PO DAILY Thyroid 01/22/19
pantoprazole 40 mg tablet,delayed release 40 mg PO QPM Gastrointestinal Issue 01/22/19
tamsulosin 0.4 mg capsule 0.4 mg PO BID BPH 01/22/19
clopidogrel 75 mg tablet 75 mg PO HS ##0 01/25/19
amlodipine 10 mg tablet 10 mg PO DAILY #0 tabs 02/28/24
sennosides 8.6 mg tablet (Senna Laxative) 17.2 mg (2 x 8.6 mg) PO HS #0 tabs 02/28/24
Home Medication Changes
Pending Results: No
[2024-02-29 07:40] VITALS: BP 146/63
[2024-02-29] MEDS: FLOMAX 0.4 MG PO (08:59)
[2024-02-29] MEDS: NORVASC 10 MG PO (08:59)
[2024-02-29] MEDS: COMBIGAN EYE DROPS 1 DROP BOTH EYES (08:59)
--- NOTE | 2024-02-29 09:45 | CM ---
hotel operations manager reviewed patient's chart and met with patient and patient has been cleared for discharge today, Auth received from patient's insurance for skilled placement at [facility].
Patient has been approved for 7 days skilled Auth [id number], 02/29/24-03/06/24, follow up needs to be faxed to [phone]. Auth provided to admissions at [facility].
[facility]
Report [phone]

Plan; Patient to transfer to [facility] today, 1pm pick[employer] by ambulance.
--- NOTE | 2024-02-29 10:57 | W.PN.HOSP.TC ---
Today's Communication/Plan
-
Discharge
Assessment / Plan
Assessment / Plan
Gen-awake, not alert, not oriented, NAD
HEENT-NC, AT, anicteric, clear oral mm
Neck-supple
CV-reg, no M, +S1/S2
Lungs-clear B/L
Abd-soft, NT, ND
Ext-no edema
Musculoskeletal-no cyanosis, clubbing
Skin-warm and dry
Neuro-grossly non-focal
Psych-calm, cooperative
Fall at Home -new onset ambulatory dysfunction and dysarthria according to prior to admission. believes he may have had a stroke. Differential diagnosis includes seizure versus stroke. MRI brain not pursued due to high risk.
Senile Dementia with Behavioral Disturbance
Toxic metabolic encephalopathy, acute -resolved.
- Family no longer able to care for patient at home safely.
- CT head unremarkable and patient back to baseline status per family.
- UA not indicative of infection.
- Checked for lab-work for possible causes of encephalopathy
- Per neurology, no further neuroimaging for encephalopathy needed and MRI is not advised in this patient's case
- PT / OT evaluations.
- CM eval for discharge planning / placement.
- Seroquel as needed although has not required any doses. Behaviors are well-controlled.
- Echo with no significant change from prior
- Discussed on 02/22/[address] Nielsen of cardiology given abnormal rhythm on tele: Dr. Nielsen looked at the tele monitor and mentioned rhythm looks like artifact.
- Cardiology interrogated patient's device and result was okay
Abnormal Chest X-Ray -repeat chest x-ray 02/22 shows improving bibasilar airspace disease. No pleural effusions. No vascular congestion.
MESFIN -present on admission but now improved. Perhaps due to volume depletion.
ASCVD
Prior CVA
- Stable. No new focal neurologic deficits at present.
- CT head negative as noted above.
- Continue current medications including Plavix.
Essential hypertension - Stable. Continue current medications with holding parameters.
Hypothyroidism - Continue current T4 supplementation.
- Update TFTs.
Urinary Frequency/BPH
- Stable. Continue tamsulosin.
- Straight cath in the ED for only 125 - no evidence of retention.
- Follow bladder scan protocol.
- Patient is concerned BPH is getting worse --> consulted urology, appreciate their evaluation and recommendations
DVT Prophylaxis: SCDs. Lovenox.
Full code
Son updated at the bedside.
Dispo -stable for discharge to SNF. He has been accepted by [facility] today. Updated at the bedside.
32 minutes spent in discharge process.
Anticipated Discharge: Today
Subjective/Interval History
-
Date of Service: February 29, 2024
Patient seen and examined. No complaints. at the bedside.
Objective Data
-
Vital Signs:
Vital Signs
Temp Pulse Resp BP Pulse Ox
98.0 F 62 16 146/63 97
02/29/24 07:40 02/29/24 07:40 02/29/24 07:40 02/29/24 07:40 02/29/24 07:40
I&O
02/28/24 02/29/24 03/01/24
06:59 06:59 06:59
Intake Total 480 / 480 540 / 540
Output Total 650 / 650 325 / 325
Balance -170 / -170 215 / 215
Review of Systems
-
Unable to obtain full review of systems at this time due to: Dementia
History Source: Patient
All other systems: Reviewed and negative
== END 2024-02-29 15:27 | DRG 884 ==
LOC: 4 WEST ACU 08:09
PROVIDERS: Emergency Medicine; Hospitalist; ADMITTING PHYSICIAN Hospitalist; ATTENDING PHYSICIAN Hospitalist; CONSULT PHYSICIAN Specialist; EMERGENCY PHYSICIAN Emergency Medicine; OTHER PHYSICIAN Psychiatry & Neurology Neurology; OTHER PHYSICIAN Psychiatry & Neurology Psychiatry
DX: F03.911 Unspecified dementia, unspecified severity, with agitation (principal); G92.8 Other toxic encephalopathy; N17.9 Acute kidney failure, unspecified; F05 Delirium due to known physiological condition; I13.0 Hypertensive heart and chronic kidney disease with heart failure and stage 1 through stage 4 chronic kidney disease, or unspecified chronic kidney disease; F03.918 Unspecified dementia, unspecified severity, with other behavioral disturbance; I16.0 Hypertensive urgency; I50.9 Heart failure, unspecified; R29.6 Repeated falls; I49.5 Sick sinus syndrome; N40.1 Benign prostatic hyperplasia with lower urinary tract symptoms; R35.1 Nocturia; R35.0 Frequency of micturition; E03.9 Hypothyroidism, unspecified; N18.31 Chronic kidney disease, stage 3a; G47.30 Sleep apnea, unspecified; E78.00 Pure hypercholesterolemia, unspecified; H40.9 Unspecified glaucoma; I25.10 Atherosclerotic heart disease of native coronary artery without angina pectoris; J45.909 Unspecified asthma, uncomplicated; K21.9 Gastro-esophageal reflux disease without esophagitis; Z11.52 Encounter for screening for COVID-19; Z96.659 Presence of unspecified artificial knee joint; Z95.0 Presence of cardiac pacemaker; Z79.899 Other long term (current) drug therapy; Z86.73 Personal history of transient ischemic attack (TIA), and cerebral infarction without residual deficits; Z88.6 Allergy status to analgesic agent; Z88.8 Allergy status to other drugs, medicaments and biological substances; Z79.890 Hormone replacement therapy; Z79.02 Long term (current) use of antithrombotics/antiplatelets
CPT/HCPCS: 36600; 70450; 71045; 71046; 72125; 80048; 80053; 80061; 80306; 81003; 82140; 82805; 83036; 83735; 83880; 84100; 84443; 84484; 85025; 85027; 87502; 87811; 92526; 92610; 93005; 93306; 96374; 97163; 97167; 97530; 97535; 99285; J2358

== ENCOUNTER → 2024-03-12 13:35 | Outpatient (REF) | payer MEDICARE, SELFPAY ==
[2024-03-12 14:40] LABS: % Basophils 0.6 % (0-2); % Eosinophils 6.1 % (0-6); % Immature Granulocytes 0.3 % (0-0.5); % Lymphocytes 30.4 % (20.5-51.1); % Monocytes 13.5 % (1.7-9.3); % Neutrophils 49.1 % (42.2-75.2); Absolute Basophils 0.1 10^3/uL (0-0.2); Absolute Eosinophils 0.6 10^3/uL (0-0.7); Absolute Monocytes 1.3 10^3/uL (0.1-0.6); Absolute Neutrophils 4.9 10^3/uL (1.4-6.5); Hematocrit 36.9 % (39.0-52.0); Hemoglobin 12.2 g/dL (13.0-18.0); Mean Corp Hgb Conc. 33.1 g/dL (33.0-37.0); Mean Corpuscular Hgb 31.5 pg (27.0-31.0); Mean Corpuscular Volume 95.3 fL (80.0-94.0); Nucleated Red Blood Cells % 0 % (-); Platelet Count 258 10^3/uL (130-400); Red Blood Cell Count 3.87 10^6/uL (4.70-6.10); Red Cell Dist. Width 15.5 % (11.5-14.5); White Blood Cell Count 9.9 10^3/uL (4.8-10.8)
[2024-03-12 14:52] LABS: ALT (SGPT) 28 U/L (0-50); AST (SGOT) 21 U/L (17-59); Albumin 3.6 g/dl (3.5-5.0); Alkaline Phosphatase 72 U/L (38-126); Blood Urea Nitrogen 20 mg/dl (9-20); Calcium 9.3 mg/dl (8.4-10.2); Carbon Dioxide 28 mmol/L (22-30); Chloride 103 mmol/L (98-107); Glucose 81 mg/dl (70-99); Potassium 4.6 mmol/L (3.5-5.1); Sodium 139 mmol/L (135-145); Total Bilirubin 0.2 mg/dl (0.2-1.3); Total Protein 6.1 g/dl (6.3-8.2); eGFR 49.56
== END ==
LOC: OLABP 13:35
PROVIDERS: ATTENDING PHYSICIAN Family Medicine
DX: Z86.73 Personal history of transient ischemic attack (TIA), and cerebral infarction without residual deficits (principal); W19.XXXD Unspecified fall, subsequent encounter; R47.1 Dysarthria and anarthria; G92.8 Other toxic encephalopathy; R26.2 Difficulty in walking, not elsewhere classified; N17.9 Acute kidney failure, unspecified; I25.10 Atherosclerotic heart disease of native coronary artery without angina pectoris; I49.9 Cardiac arrhythmia, unspecified; Z95.0 Presence of cardiac pacemaker; K21.9 Gastro-esophageal reflux disease without esophagitis; N40.1 Benign prostatic hyperplasia with lower urinary tract symptoms; E03.9 Hypothyroidism, unspecified; R35.0 Frequency of micturition; H40.9 Unspecified glaucoma
CPT/HCPCS: 36415; 80053; 85025

== ENCOUNTER → 2024-05-27 11:17 | Outpatient (REF) | payer MEDICARE, SELFPAY ==
[2024-05-27 11:59] LABS: % Basophils 0.9 % (0-2); % Eosinophils 5.6 % (0-6); % Immature Granulocytes 0.2 % (0-0.5); % Lymphocytes 31.8 % (20.5-51.1); % Monocytes 11.7 % (1.7-9.3); % Neutrophils 49.8 % (42.2-75.2); Absolute Basophils 0.1 10^3/uL (0-0.2); Absolute Eosinophils 0.5 10^3/uL (0-0.7); Absolute Lymphocytes 2.7 10^3/uL (1.2-3.4); Absolute Neutrophils 4.2 10^3/uL (1.4-6.5); Hematocrit 41.4 % (39.0-52.0); Hemoglobin 13.7 g/dL (13.0-18.0); Mean Corp Hgb Conc. 33.1 g/dL (33.0-37.0); Mean Corpuscular Hgb 30.8 pg (27.0-31.0); Mean Platelet Volume 9.4 fL (7.4-10.4); Nucleated Red Blood Cells % 0 % (-); Platelet Count 239 10^3/uL (130-400); Red Blood Cell Count 4.45 10^6/uL (4.70-6.10); Red Cell Dist. Width 14.2 % (11.5-14.5); White Blood Cell Count 8.5 10^3/uL (4.8-10.8)
[2024-05-27 12:56] LABS: ALT (SGPT) 21 U/L (0-50); AST (SGOT) 23 U/L (17-59); Albumin 4.5 g/dl (3.5-5.0); Alkaline Phosphatase 106 U/L (38-126); Blood Urea Nitrogen 21 mg/dl (9-20); Calcium 9.6 mg/dl (8.4-10.2); Carbon Dioxide 25 mmol/L (22-30); Chloride 101 mmol/L (98-107); Glucose 96 mg/dl (70-99); HDL Cholesterol 56 mg/dl; LDL Cholesterol, Calculated 61 mg/dl; Potassium 4.7 mmol/L (3.5-5.1); Sodium 135 mmol/L (135-145); Total Bilirubin 0.4 mg/dl (0.2-1.3); Total Cholesterol 138 mg/dl (50-199); Total Protein 7.5 g/dl (6.3-8.2); Triglyceride 109 mg/dl (10-149); Very Low Density Lipoprotein 21 mg/dl (0-30); eGFR 49.56
[2024-05-27 13:44] LABS: TSH 3.52 uIU/ml (0.47-4.68)
[2024-05-28 19:29] LABS: PSA Total 5.4 ng/mL (0.0-4.0)
== END ==
LOC: REG 11:17
PROVIDERS: ATTENDING PHYSICIAN Internal Medicine
DX: Z00.00 Encounter for general adult medical examination without abnormal findings (principal); E78.5 Hyperlipidemia, unspecified; N40.1 Benign prostatic hyperplasia with lower urinary tract symptoms; E03.9 Hypothyroidism, unspecified
CPT/HCPCS: 36415; 80053; 80061; 84153; 84154; 84443; 85025

== ENCOUNTER → 2024-10-15 15:12 | Outpatient (REF) | payer MEDICARE, SELFPAY | LOC: RAD 15:12 | PROVIDERS: ATTENDING PHYSICIAN Internal Medicine | DX: M79.675 Pain in left toe(s) (principal) | CPT/HCPCS: 73660 ==